=== PATIENT | female | born 1935 | race Caucasian/White ===

== ENCOUNTER 2016-11-29 06:25 | Inpatient (IN) | payer MEDICARE, OTHER ==
[~2016-11-29] VITALS: Ht 162.6 cm; Wt 123.7 kg
[2016-11-29] VITALS (19 sets, daily range): BP systolic 118–153; BP diastolic 64–93; PULSE 64–101; RESP 20–22; TEMP 98.6–99.1; O2SAT 90–99
[~2016-11-29 06:25] MED LIST: ACET325S8 PO; ALDA25TA PO; APIX5TAB PO; ARIC5TAB PO; BISA10SU3 RECTAL; CLON.1 PO; DONE10TA14 PO; DONE10TA7 PO; FLOR250C PO; GABA300C5 PO; INSU100V2 SC; LEVA500T PO; LEVEMIR SQ; LISI5 PO; LITH300 OR; LITH300C2 PO; METO-309 PO; MIRA33504 PO; NOVORP2 SQ; PRED5TAB PO; QUET1TAB11 PO; QUET1TAB8 PO; SENN8.6C PO; SERO100T PO; SIMV20TA PO; SPIRCAP INH; SYNT112T PO; TEMA15CA PO; TEMA7.5C PO; TORS10TA2 PO; TRAM50TA PO; VITA500030 CHEW
[2016-11-29] MEDS ORDERED: LATA0.002 EACH EYE (06:40)
[2016-11-29] MEDS ORDERED: FUROSEMIDE 40 MG/4 ML VIAL IV PUSH ONE (06:45)
[2016-11-29 06:52] LABS: BLOOD GAS CARBOXYHEMOGLOBIN 2.7 % (0-4); BLOOD GAS HCO3 30 mmol/L (22-26); BLOOD GAS O2 HGB SATURATION 94 % (90-100); BLOOD GAS OXYGEN CONTENT 15.4 Vol % (12.0-20.0); BLOOD GAS PCO2 60 mmHg (38-42); BLOOD GAS PO2 115 mmHG (61-120); BLOOD GAS TOTAL HGB 11.5 G/DL (12.0-16.0); CRITICAL VALUE YES; DRAW SITE LT RADIAL; FIO2 100 %; LITER FLOW 15 L/M; NUMBER OF ARTERIAL PUNCTURES 1; STAT YES; TEMP CORR TO 98.6
[2016-11-29] MEDS: RESP: ALBUTEROL 2.5 MG/IPRATROPIUM 0.5 MG NEB (SCH) INH ×2 (06:57→06:58)
--- NOTE | 2016-11-29 06:59 | PD ---
HPI Chief Complaint: Respiratory Distress Time Seen by Provider: 06:30 Travel History International Travel<30 days: No Contact w/Intl Traveler<30days: No Traveled to known affect area: No History of Present Illness HPI 81-year-old female was brought in from local [facility] for shortness of breath. Patient was found lethargic and shortness of breath this morning. O2 saturation was 58% at local [facility]. EMS was called. Patient was given O2 via nonrebreathing mask and transported to ED for evaluation. Patient has history of hypertension, diabetes, coronary artery disease, hypothyroidism, dyslipidemia, chronic kidney disease, dementia with psychosis, bipolar disorder. PFSH Past Medical History Bipolar Disorder: Yes Anxiety: Yes Depression: Yes Heart Rhythm Problems: Yes Cardiovascular Problems: Yes (PER MEDICAL RECORD-CAD) High Cholesterol: Yes Congestive Heart Failure: Yes Cerebrovascular Accident: Yes (CVA PER MEDICAL RECORD) Coronary Artery Disease: Yes Dementia: Yes Diabetes: Yes Patient Takes Glucophage: No Diminished Hearing: No Endocrine: Yes (PER MEDICAL RECORD) Genitourinary: Yes (PER MEDICAL RECORD- HAS UTI PER MEDICAL RECORD) Hypertension: Yes Implanted Vascular Access Dvce: No Insomnia: Yes Neurologic: Yes (BRAIN TUMOR PER MEDICAL RECORD, ) Psychiatric: Yes (BIPOLAR) Respiratory: Yes (PER MEDICAL RECORD-HX OF RECENT URI) Renal Failure: Yes Thyroid Disease: Yes Triglycerides - High: Yes Menopausal: Yes Past Surgical History Cardiac Surgery: Yes Neurologic Surgery: Yes (SURGERY FOR BRAIN TUMOR DEBULKING PER MEDICAL RECORD) Pacemaker: Yes Other Surgery: Yes Social History Alcohol Use: No Tobacco Use: Yes Substance Use: No (PER MEDICAL RECORD) Allergies-Medications (Allergen,Severity, Reaction): Coded Allergies: No Known Allergies (Verified , 11/29/16) Reported Meds & Prescriptions Reported Meds & Active Scripts Active Reported Latanoprost Opth Drops (Latanoprost) 0.005% Drops 1 Drop EACH EYE HS Refrigerate until opened. Temazepam 7.5 Mg Cap 7.5 Mg PO HS PRN Quetiapine (Quetiapine Fumarate) 400 Mg Tab 400 Mg PO HS Miralax Powder (Polyethylene Glycol 3350 Powder) 17 Gm Powd 17 Gm PO DAILY Mix and dissolve one measuring cap-ful (17 grams) in water or juice. Donepezil 10 Mg Tab 10 Mg PO HS Bisacodyl Supp (Bisacodyl) 10 Mg Supp 10 Mg RECTAL DAILY PRN Simvastatin 20 Mg Tab 20 Mg PO DAILY Gabapentin 300 Mg Cap 300 Mg PO TID Tramadol (Tramadol HCl) 50 Mg Tab 50 Mg PO Q8H PRN Florastor (Saccharomyces Boulardii) 250 Mg Cap 250 Mg PO BID Senna (Sennosides) 8.6 Mg Cap 8.6 Mg PO HS Quetiapine (Quetiapine Fumarate) 100 Mg Tab 100 Mg PO BID Wagner Carbonate 300 Mg Cap 300 Mg PO BID Eliquis (Apixaban) 5 Mg Tab 5 Mg PO BID Vitamin D3 (Cholecalciferol) 5,000 Unit Chew 5,000 Units CHEW DAILY Torsemide 10 Mg Tab 10 Mg PO DAILY Spiriva Handihaler (Tiotropium Inh) 18 Mcg Cap 18 Mcg INH DAILY 1 capsule = 18 mcg Prednisone 5 Mg Tab 5 Mg PO DAILY Synthroid (Levothyroxine Sodium) 112 Mcg Tab 112 Mcg PO DAILY Levemir Inj (Insulin Detemir) 1,000 unit/ 10 ML Vial 5 Units SQ HS Do not mix with any other Insulin. Review of Systems ROS Limitations: Altered Mental Status General / Constitutional: No: Fever Eyes: No: Visual changes HENT: No: Headaches Cardiovascular: No: Chest Pain or Discomfort Respiratory: No: Shortness of Breath Gastrointestinal: No: Abdominal Pain Genitourinary: No: Dysuria Musculoskeletal: No: Pain Skin: No Rash Neurologic: No: Weakness Psychiatric: No: Depression Endocrine: No: Polydipsia Hematologic/Lymphatic: No: Easy Bruising Physical Exam Narrative GENERAL: Well-nourished, well-developed patient. SKIN: Focused skin assessment warm/dry. HEAD: Normocephalic. EYES: No scleral icterus. No injection or drainage. NECK: Supple, trachea midline. No JVD or lymphadenopathy. CARDIOVASCULAR: Regular rate and rhythm without murmurs, gallops, or rubs. RESPIRATORY: Breath sounds equal bilaterally. No accessory muscle use. Patient has diffuse rhonchi and mild expiratory wheezes bilaterally. GASTROINTESTINAL: Abdomen soft, non-tender, nondistended. MUSCULOSKELETAL: No cyanosis, or edema. BACK: Nontender without obvious deformity. No CVA tenderness. Neurologic exam: Patient is lethargic and answered to name. Patient moves all extremity weakly however no focal neurological deficit. Data Data Last Documented VS Vital Signs Date Time Temp Pulse Resp B/P Pulse Ox O2 Delivery O2 Flow Rate FiO2 11/29/16 06:33 98 Non-Rebreather 15 11/29/16 06:28 99.1 79 22 149/93 Orders Electrocardiogram (11/29/16 06:30) Complete Blood Count With Diff (11/29/16 06:30) Comprehensive Metabolic Panel (11/29/16 06:30) Creatine Kinase (Cpk) (11/29/16 06:30) Troponin I (11/29/16 06:30) B-Type Natriuretic Peptide (11/29/16 06:30) Prothrombin Time / Inr (Pt) (11/29/16 06:30) Act Partial Throm Time (Ptt) (11/29/16 06:30) Arterial Blood Gas (Abg) (11/29/16 06:30) Blood Culture (11/29/16 06:30) Urinalysis - C+S If Indicated (11/29/16 06:30) Thyroid Stimulating Hormone (11/29/16 06:30) Influenzae A/B Antigen (11/29/16 06:30) Chest, Single Ap (11/29/16 06:30) Iv Access Insert/Monitor (11/29/16 06:30) Ecg Monitoring (11/29/16 06:30) Oximetry (11/29/16 06:30) Urinary Catheter Insert/Apply (11/29/16 06:30) Furosemide Inj (Lasix Inj) (11/29/16 06:45) Albuterol-Ipratropium Neb (Duoneb Neb) (11/29/16 06:45) Lactic Acid (11/29/16 06:35) Lactic Acid (11/29/16 06:49) MDM Medical Decision Making Medical Screen Exam Complete: Yes Emergency Medical Condition: Yes Differential Diagnosis Differential diagnosis including CHF, pneumonia, left airway disease, PE, pneumothorax, sepsis. Narrative Course 81-year-old female with respiratory distress, lethargic came from [facility]. Examination consistent with pulmonary congestion. Lasix 60 mg IV. Albuterol with Atrovent unit dose treatment 2. Brandon Arauz MD Nov 29, 2016 06:59
[2016-11-29] MEDS ORDERED: FUROSEMIDE 20 MG/2 ML VIAL IV PUSH ONE (07:00)
[2016-11-29 07:01] LABS: AUTOMATED NEUTROPHIL # 16.2 TH/MM3 (1.8-7.7); BASOPHIL % 0.2 % (0.0-2.0); EOSINOPHIL # 0.2 TH/MM3 (0-0.4); EOSINOPHIL % 0.8 % (0.0-4.0); HEMO FLAGS DIFF FINAL; LYMPH % 8.8 % (9.0-44.0); LYMPHOCYTE # 1.7 TH/MM3 (1.0-4.8); MEAN CELL VOLUME 92.9 FL (80.0-100.0); MEAN CORPUSCULAR HEMOGLOBIN 28.6 PG (27.0-34.0); MEAN CORPUSCULAR HGB CONC 30.8 % (32.0-36.0); MONO % 4.1 % (0.0-8.0); NEUT % 86.1 % (16.0-70.0); PLATELET COUNT 192 TH/MM3 (150-450); RED BLOOD COUNT 3.98 MIL/MM3 (4.00-5.30); RED CELL DISTRIBUTION WIDTH 16.3 % (11.6-17.2); WHITE BLOOD COUNT 18.8 TH/MM3 (4.0-11.0)
[2016-11-29 07:08] LABS: BACTERIA, URINE RARE /hpf; BLOOD, URINE NEG (NEG); COMMENT (UR) CATH-CULTURE IND; CULTURE IF INDICATED CATH CULTURE IND; GLUCOSE,URINE NEG (NEG); KETONE, URINE NEG (NEG); NITRITE,URINE NEG (NEG); PH, URINE 6.5 (5.0-8.5); SQUAMOUS EPITHELIAL CELL URINE 1 /hpf (0-5); URINE COLOR LIGHT-YELLOW (YELLW/STRAW)
[2016-11-29] MEDS ORDERED: CEFEPIME INJ 2,000 MG in SODIUM CHLORIDE 0.9% INJ 100 ML IV STA (07:13)
[2016-11-29] MEDS ORDERED: AZITHROMYCIN INJ 500 MG in SODIUM CHLOR 0.9% 250 ML INJ 250 ML IV STA (07:13)
[2016-11-29 07:14] LABS: PROTHROMBIN TIME - PATIENT 10.6 SEC (9.8-11.6)
[2016-11-29 07:28] LABS: ALKALINE PHOSPHATASE 100 U/L (45-117); ALT (GPT) 23 U/L (10-53); ANION GAP 4 MEQ/L (5-15); AST (GOT) 20 U/L (15-37); BICARBONATE 31.2 MEQ/L (21.0-32.0); BLOOD UREA NITROGEN 29 MG/DL (7-18); CHLORIDE 103 MEQ/L (98-107); GLOMERULAR FILTRATION RATE 29 ML/MIN (>89); SODIUM (NA) 138 MEQ/L (136-145); TOTAL BILIRUBIN ADULT 0.4 MG/DL (0.2-1.0)
[2016-11-29 07:30] LABS: CREATINE KINASE 41 U/L (26-192); POTASSIUM 4.8 MEQ/L (3.5-5.1)
--- NOTE | 2016-11-29 07:39 | PD ---
Physical Exam Narrative GENERAL: Well-nourished, well-developed patient. SKIN: Warm and dry. HEAD: Normocephalic and atraumatic. EYES: No injection or drainage. ENT: No nasal drainage noted. NECK: Supple, trachea midline. CARDIOVASCULAR: Regular rate and rhythm RESPIRATORY:coarse bilaterally. No accessory muscle use. NEUROLOGICAL: Awake. Moves all extremities, garbled speech and notes that does not feel well Data Data Last Documented VS Vital Signs Date Time Temp Pulse Resp B/P Pulse Ox O2 Delivery O2 Flow Rate FiO2 11/29/16 08:45 77 22 153/70 95 BiPAP 11/29/16 07:45 40 11/29/16 07:19 6.00 11/29/16 06:28 99.1 Orders Electrocardiogram (11/29/16 06:30) Complete Blood Count With Diff (11/29/16 06:30) Comprehensive Metabolic Panel (11/29/16 06:30) Creatine Kinase (Cpk) (11/29/16 06:30) Troponin I (11/29/16 06:30) B-Type Natriuretic Peptide (11/29/16 06:30) Prothrombin Time / Inr (Pt) (11/29/16 06:30) Act Partial Throm Time (Ptt) (11/29/16 06:30) Arterial Blood Gas (Abg) (11/29/16 06:30) Blood Culture (11/29/16 06:30) Urinalysis - C+S If Indicated (11/29/16 06:30) Thyroid Stimulating Hormone (11/29/16 06:30) Influenzae A/B Antigen (11/29/16 06:30) Chest, Single Ap (11/29/16 06:30) Iv Access Insert/Monitor (11/29/16 06:30) Ecg Monitoring (11/29/16 06:30) Oximetry (11/29/16 06:30) Urinary Catheter Insert/Apply (11/29/16 06:30) Furosemide Inj (Lasix Inj) (11/29/16 06:45) Albuterol-Ipratropium Neb (Duoneb Neb) (11/29/16 06:45) Lactic Acid (11/29/16 06:35) Lactic Acid (11/29/16 06:49) Furosemide Inj (Lasix Inj) (11/29/16 07:00) Urine Culture (11/29/16 06:53) Cefepime Inj (Maxipime Inj) (11/29/16 07:13) Azithromycin Inj (Zithromax Inj) (11/29/16 07:13) Resp Bipap / Cpap Non Invas Vt (11/29/16 ) Sodium Chlorid 0.9% 500 Ml Inj (Ns 500 M (11/29/16 08:30) Code Status (11/29/16 09:13) Admit Order (Ed Use Only) (11/29/16 09:16) Admit To Inpatient (11/29/16 ) Vital Signs (Adult) Q4H (11/29/16 09:15) Activity Oob Ad Phyllis (11/29/16 09:15) Bedside Glucose MAURA.AC&HS (11/29/16 09:15) Integration Assistant / Telemetry .CONTINUOUS (11/29/16 09:15) Intake + Output MAURA.QSHIFT (11/29/16 09:15) Notify Dr: Other (11/29/16 09:15) Diet Npo (11/29/16 Breakfast) Sodium Chlor 0.9% 1000 Ml Inj (Ns 1000 M (11/29/16 09:15) Sodium Chloride 0.9% Flush (Ns Flush) (11/29/16 09:15) Sodium Chloride 0.9% Flush (Ns Flush) (11/29/16 21:00) Acetaminophen (Tylenol) (11/29/16 09:15) Ondansetron Inj (Zofran Inj) (11/29/16 09:15) Bisacodyl Supp (Dulcolax Supp) (11/29/16 09:15) Docusate Sodium (Colace) (11/29/16 09:15) Basic Metabolic Panel (Bmp) (11/30/16 06:00) Complete Blood Count With Diff (11/30/16 06:00) Prothrombin Time / Inr (Pt) (11/30/16 06:00) Resp Oxygen Jay C Titrat 1-4 L (11/29/16 ) Heparin Inj (Heparin Inj) (11/29/16 09:15) Naloxone Inj (Narcan Inj) (11/29/16 09:15) Inpatient Certification (11/29/16 ) Labs Laboratory Tests Test 11/29/16 11/29/16 06:45 06:53 White Blood Count 18.8 TH/MM3 Red Blood Count 3.98 MIL/MM3 Hemoglobin 11.4 GM/DL Hematocrit 37.0 % Mean Corpuscular Volume 92.9 FL Mean Corpuscular Hemoglobin 28.6 PG Mean Corpuscular Hemoglobin 30.8 % Concent Red Cell Distribution Width 16.3 % Platelet Count 192 TH/MM3 Mean Platelet Volume 10.4 FL Neutrophils (%) (Auto) 86.1 % Lymphocytes (%) (Auto) 8.8 % Monocytes (%) (Auto) 4.1 % Eosinophils (%) (Auto) 0.8 % Basophils (%) (Auto) 0.2 % Neutrophils # (Auto) 16.2 TH/MM3 Lymphocytes # (Auto) 1.7 TH/MM3 Monocytes # (Auto) 0.8 TH/MM3 Eosinophils # (Auto) 0.2 TH/MM3 Basophils # (Auto) 0.0 TH/MM3 CBC Comment DIFF FINAL Differential Comment Prothrombin Time 10.6 SEC Prothromb Time International 1.0 RATIO Ratio Activated Partial 29.0 SEC Thromboplast Time Blood Gas Puncture Site LT RADIAL Blood Gas Patient Temperature 98.6 Blood Gas HCO3 30 mmol/L Blood Gas Base Excess 4.0 mmol/L Blood Gas Oxygen Saturation 94 % Arterial Blood pH 7.32 Arterial Blood Partial 60 mmHg Pressure CO2 Arterial Blood Partial 115 mmHG Pressure O2 Arterial Blood Oxygen Content 15.4 Vol % Arterial Blood 2.7 % Carboxyhemoglobin Arterial Blood Methemoglobin 1.0 % Blood Gas Hemoglobin 11.5 G/DL Oxygen Delivery Device Non-Rebreathing Mask Blood Gas Liter Flow 15 L/M Blood Gas Inspired Oxygen 100 % Sodium Level 138 MEQ/L Potassium Level 4.8 MEQ/L Chloride Level 103 MEQ/L Carbon Dioxide Level 31.2 MEQ/L Anion Gap 4 MEQ/L Blood Urea Nitrogen 29 MG/DL Creatinine 1.72 MG/DL Estimat Glomerular Filtration 29 ML/MIN Rate Random Glucose 228 MG/DL Lactic Acid Level 2.1 mmol/L Calcium Level 9.2 MG/DL Total Bilirubin 0.4 MG/DL Aspartate Amino Transf 20 U/L (AST/SGOT) Alanine Aminotransferase 23 U/L (ALT/SGPT) Alkaline Phosphatase 100 U/L Total Creatine Kinase 41 U/L Troponin I LESS THAN 0.02 NG/ML B-Type Natriuretic Peptide 54 PG/ML Total Protein 7.0 GM/DL Albumin 3.1 GM/DL Thyroid Stimulating Hormone 2.870 uIU/ML 3rd Gen Urine Color LIGHT-YELLOW Urine Turbidity CLEAR Urine pH 6.5 Urine Specific [place] 1.011 Urine Protein TRACE mg/dL Urine Glucose (UA) NEG mg/dL Urine Ketones NEG mg/dL Urine Occult Blood NEG Urine Nitrite NEG Urine Bilirubin NEG Urine Urobilinogen LESS THAN 2.0 MG/DL Urine Leukocyte Esterase TRACE Urine RBC LESS THAN 1 /hpf Urine WBC 3 /hpf Urine Squamous Epithelial 1 /hpf Cells Urine Bacteria RARE /hpf Microscopic Urinalysis Comment CATH-CULTURE IND MDM Supervised Visit with MIGUELINA: No Interpretation(s) CBC & BMP Diagram 11/29/16 06:45 cxr with signs of pneumonia, right more then left in patchy pattern bnp normal Narrative Course Signed over to me to follow workup and admit for further care, antibiotics added to regimen and attempted to stop second Lasix dose after review of chest x -ray but this was already given, patient will be given small amount of IV fluids and will try trial of BiPAP given patient is DNR with mild respiratory acidosis family arrived and updated, agree to bipap and continue dnr status, will admit for further patient stable on bipap on recheck will monitor Critical Care Narrative Aggregate critical care time was 35 minutes. Time to perform other separately billable procedures was not included in the critical care time. My time did not include minutes spent treating any other patients simultaneously or on activities that did not directly contribute to the patient's treatment. The services I provided to this patient were to treat and/or prevent clinically significant deterioration that could result in: respiratory failure I provided critical care services requiring my management, as noted below: Chart data review, documentation time, medication orders and management, vital sign assessments/reviewing monitor data, ordering and reviewing lab tests, ordering and interpreting/reviewing x-rays and diagnostic studies, care of the patient and discussion of the patient with the admitting physicians. Sepsis Criteria SIRS Criteria (2 or more): RR > 20 or PaCO2 < 32, WBC > 95398, < 4000 or > 10 % bands Sepsis Criteria (SIRS+source): Infect source susp/known Severe Sepsis (+one): Lactate >2 Criteria Outcome: Meets severe sepsis criteria Physician Communication Physician Communication dr bartlett agrees to admit Diagnosis Primary Impression: Pneumonia Qualified Code: J18.9 - Pneumonia of both lungs due to infectious organism, unspecified part of lung Additional Impression: Sepsis Qualified Code: A41.9 - Sepsis, due to unspecified organism Admitting Information Admitting Physician Requests: Admit Mali Ortiz MD Nov 29, 2016 07:38
--- NOTE | 2016-11-29 08:11 | RADRPT ---
EXAM DATE/TIME: 11/29/2016 07:07 [place] COMPARISON: CHEST SINGLE AP, October 13, 2012, 7:46. INDICATIONS : Shortness of breath. MEDICAL HISTORY : Chronic obstructive pulmonary disease. SURGICAL HISTORY : Pacemaker. ENCOUNTER: Initial ACUITY: 1 day PAIN SCORE: Non-responsive. LOCATION: Bilateral chest FINDINGS: The heart is mildly prominent but stable. A left subclavian dual lead pacemaker has its tips in the right atrium and right ventricle. Patchiness is noted within the right lung base and to a lesser ext ent left lung base consistent with probable pneumonia. Clinical correlation is recommended. CONCLUSION: 1. Bibasilar patchiness (right worse than left) consistent with probable pneumonia. Clinical correl ation is recommended. 2. Stable cardiomegaly. Adiel Wilson MD on November 29, 2016 at 7:29 Board Certified Radiologist. This report was verified electronically.
[2016-11-29] MEDS ORDERED: SODIUM CHLORID 0.9% 500 ML INJ 500 ML IV ONE (08:30)
[2016-11-29] MEDS ORDERED: SODIUM CHLORIDE 0.9% FLUSH 10 ML FLUSH IV FLUSH PRN (09:15)
[2016-11-29] MEDS ORDERED: ACETAMINOPHEN 325 MG TAB PO PRN (09:15)
[2016-11-29] MEDS ORDERED: NALOXONE HCL 0.4 MG/ML AMP IV PRN (09:15)
[2016-11-29] MEDS ORDERED: BISACODYL 10 MG SUPP RECTAL PRN (09:15)
[2016-11-29] MEDS: SODIUM CHLOR 0.9% 1000 ML INJ 1,000 ML IV SCH ×2 (09:15→22:26)
[2016-11-29] MEDS ORDERED: HEPARIN SODIUM - SQ 10,000 UNITS/ML VIAL SQ SCH (09:15)
[2016-11-29] MEDS: DOCUSATE SODIUM 100 MG CAP PO SCH ×2 (09:15→21:22)
[2016-11-29] MEDS ORDERED: ONDANSETRON HCL 4 MG/2 ML VIAL IVP PRN (09:15)
--- NOTE | 2016-11-29 09:19 | HHI.HP ---
[facility] Service [place] [facility] Primary Care Physician No Primary Care Physician Admission Diagnosis pneumonia Diagnoses: Chief Complaint: Shortness of breath Travel History International Travel<30 Days: No Contact w/Intl Traveler <30 Da: No Traveled to Known Affected Are: No History of Present Illness This is a pleasant 81 y/o Female who was brought in from local snf for Shortness of breath, was found lethargic and Shortness of breath in AM, Oxygen saturation was 58% at local residential, Improving after antibiotics given in ER, also Bronchodilators, she has Hypertension, DM II, CAD, Hypothyroidism, Hyperlipidemia, CKD, Dementia with Psychosis, Bipolar Disorder. Seen in Emergency room the patient is discussed with Respiratory therapy specialist Shabnam the patient is on BiPAP consulted retina subspecialist, also piercing specialist, I called her contact Miss Sisi Nunez but no answer to the Phones [phone] and [phone] left messages on both phones. not able to take history other than the one in chart. Review of Systems Respiratory: COMPLAINS OF: Shortness of breath Past Family Social History Past Medical History Bipolar Disorder Anxiety disorder Depression Arrhythmia CAD Hyperlipidemia CHF CVA Dementia DM II Hypertension Brain Tumor Hypothyroidism Past Surgical History Brain Tumor Debulking surgery pacemaker placement. Reported Medications Reported Meds & Active Scripts Active Reported Latanoprost Opth Drops (Latanoprost) 0.005% Drops 1 Drop EACH EYE HS Refrigerate until opened. Temazepam 7.5 Mg Cap 7.5 Mg PO HS PRN Quetiapine (Quetiapine Fumarate) 400 Mg Tab 400 Mg PO HS Miralax Powder (Polyethylene Glycol 3350 Powder) 17 Gm Powd 17 Gm PO DAILY Mix and dissolve one measuring cap-ful (17 grams) in water or juice. Donepezil 10 Mg Tab 10 Mg PO HS Bisacodyl Supp (Bisacodyl) 10 Mg Supp 10 Mg RECTAL DAILY PRN Simvastatin 20 Mg Tab 20 Mg PO DAILY Gabapentin 300 Mg Cap 300 Mg PO TID Tramadol (Tramadol HCl) 50 Mg Tab 50 Mg PO Q8H PRN Florastor (Saccharomyces Boulardii) 250 Mg Cap 250 Mg PO BID Senna (Sennosides) 8.6 Mg Cap 8.6 Mg PO HS Quetiapine (Quetiapine Fumarate) 100 Mg Tab 100 Mg PO BID Champ Carbonate 300 Mg Cap 300 Mg PO BID Eliquis (Apixaban) 5 Mg Tab 5 Mg PO BID Vitamin D3 (Cholecalciferol) 5,000 Unit Chew 5,000 Units CHEW DAILY Torsemide 10 Mg Tab 10 Mg PO DAILY Spiriva Handihaler (Tiotropium Inh) 18 Mcg Cap 18 Mcg INH DAILY 1 capsule = 18 mcg Prednisone 5 Mg Tab 5 Mg PO DAILY Synthroid (Levothyroxine Sodium) 112 Mcg Tab 112 Mcg PO DAILY Levemir Inj (Insulin Detemir) 1,000 unit/ 10 ML Vial 5 Units SQ HS Do not mix with any other Insulin. Allergies: Coded Allergies: No Known Allergies (Verified , 11/29/16) Active Ordered Medications Current Medications Medications (Trade) Dose Ordered Sig/Julieta Route Start Time Stop Time Status Last Admin (NS 1000 ml Inj) 1,000 ml @ 100 mls/hr Q10H IV 11/29/16 09:15 (NS Flush) 2 ml UNSCH PRN IV FLUSH 11/29/16 09:15 (NS Flush) 2 ml BID IV FLUSH 11/29/16 21:00 (Tylenol) 650 mg Q4H PRN PO 11/29/16 09:15 (Zofran Inj) 4 mg Q6H PRN IVP 11/29/16 09:15 (Dulcolax Supp) 10 mg DAILY PRN RECTAL 11/29/16 09:15 (Colace) 100 mg Q12H PO 11/29/16 09:15 (Heparin Inj) 5,000 units Q12H SQ 11/29/16 09:15 Naloxone HCl 0.4 mg 0.4 mg UNSCH PRN IV 11/29/16 09:15 Ceftriaxone Sodium 1000 mg/ Sodium Chloride 100 ml @ 200 mls/hr Q24H IV 11/30/16 09:00 (Zithromax Inj/ NS 250 ml Inj) 250 ml @ 250 mls/hr Q24H IV 11/30/16 09:00 (Mucinex Er) 600 mg BID PO 11/29/16 21:00 Family History Not possible to obtain information Social History Tobacco dependence Physical Exam Vital Signs Vital Signs Date Time Temp Pulse Resp B/P Pulse Ox O2 Delivery O2 Flow Rate FiO2 11/29/16 08:45 77 22 153/70 95 BiPAP 11/29/16 07:45 96 40 11/29/16 07:19 94 Venturi Mask 6.00 50 11/29/16 06:33 98 Non-Rebreather 15 11/29/16 06:28 99.1 79 22 149/93 96 Physical Exam GENERAL: Morbid obese patient, on BiPAP. SKIN: warm/dry. HEAD: Normocephalic. EYES: No scleral icterus. No injection or drainage. NECK: Supple, trachea midline. No JVD or lymphadenopathy. CARDIOVASCULAR: Regular rate and rhythm without murmurs, gallops, or rubs. RESPIRATORY: Decreased breath sounds bilateral, Expiratory Wheezing and soft diffuse Rhonchi. GASTROINTESTINAL: Abdomen soft, non-tender, nondistended. MUSCULOSKELETAL: No cyanosis, or edema. BACK: Nontender without obvious deformity. No CVA tenderness. Neurologic exam: Patient is lethargic and answered to name. Patient moves all extremity weakly however no focal neurological deficit. Laboratory Laboratory Tests Test 11/29/16 11/29/16 06:45 06:53 White Blood Count 18.8 Red Blood Count 3.98 Hemoglobin 11.4 Hematocrit 37.0 Mean Corpuscular Volume 92.9 Mean Corpuscular Hemoglobin 28.6 Mean Corpuscular Hemoglobin 30.8 Concent Red Cell Distribution Width 16.3 Platelet Count 192 Mean Platelet Volume 10.4 Neutrophils (%) (Auto) 86.1 Lymphocytes (%) (Auto) 8.8 Monocytes (%) (Auto) 4.1 Eosinophils (%) (Auto) 0.8 Basophils (%) (Auto) 0.2 Neutrophils # (Auto) 16.2 Lymphocytes # (Auto) 1.7 Monocytes # (Auto) 0.8 Eosinophils # (Auto) 0.2 Basophils # (Auto) 0.0 CBC Comment DIFF FINAL Differential Comment Prothrombin Time 10.6 Prothromb Time International 1.0 Ratio Activated Partial 29.0 Thromboplast Time Blood Gas Puncture Site LT RADIAL Blood Gas Patient Temperature 98.6 Blood Gas HCO3 30 Blood Gas Base Excess 4.0 Blood Gas Oxygen Saturation 94 Arterial Blood pH 7.32 Arterial Blood Partial 60 Pressure CO2 Arterial Blood Partial 115 Pressure O2 Arterial Blood Oxygen Content 15.4 Arterial Blood 2.7 Carboxyhemoglobin Arterial Blood Methemoglobin 1.0 Blood Gas Hemoglobin 11.5 Oxygen Delivery Device Non-Rebreathing Mask Blood Gas Liter Flow 15 Blood Gas Inspired Oxygen 100 Sodium Level 138 Potassium Level 4.8 Chloride Level 103 Carbon Dioxide Level 31.2 Anion Gap 4 Blood Urea Nitrogen 29 Creatinine 1.72 Estimat Glomerular Filtration 29 Rate Random Glucose 228 Lactic Acid Level 2.1 Calcium Level 9.2 Total Bilirubin 0.4 Aspartate Amino Transf 20 (AST/SGOT) Alanine Aminotransferase 23 (ALT/SGPT) Alkaline Phosphatase 100 Total Creatine Kinase 41 Troponin I LESS THAN 0.02 B-Type Natriuretic Peptide 54 Total Protein 7.0 Albumin 3.1 Thyroid Stimulating Hormone 2.870 3rd Gen Urine Color LIGHT-YELLOW Urine Turbidity CLEAR Urine pH 6.5 Urine Specific [place] 1.011 Urine Protein TRACE Urine Glucose (UA) NEG Urine Ketones NEG Urine Occult Blood NEG Urine Nitrite NEG Urine Bilirubin NEG Urine Urobilinogen LESS THAN 2.0 Urine Leukocyte Esterase TRACE Urine RBC LESS THAN 1 Urine WBC 3 Urine Squamous Epithelial 1 Cells Urine Bacteria RARE Microscopic Urinalysis Comment CATH-CULTURE IND Date/Time Procedure Status Source Growth 11/29/16 06:53 Urine Culture Received Urine Catheterized Urine Pending 11/29/16 06:45 Aerobic Blood Culture Received Blood Peripheral Pending 11/29/16 06:45 Anaerobic Blood Culture Received Blood Peripheral Pending Result Diagram: 11/29/16 0645 11/29/16 0645 Imaging CXR performed. Assessment and Plan Assessment and Plan 1. Respiratory Failure Hypercapnic Probable secondary to COPD exacerbation and Pneumonia continue Antibiotics, Bronchodilators, mucolytic and incentive spirometry, Oxygen to keep Oxygen saturation over 92%. Discussed with Respiratory Therapy specialist 2. Bipolar disorder/Anxiety disorder/Depression to continue Home medicines 3. CAD asked for new Echocardiogram and BNP 54 continue IV fluids 4. Atrial fibrillation on Eliquis 5. Hyperlipidemia to continue Home medicines 6. Dementia to continue Home medicines 7. DM II continue sliding scale. 8. Hypertension controlled continue home medicines 9. Hypothyroidism to continue Hormonal replacement IV. Consult retina subspecialist Consult piercing specialist. DVT prophylaxis with Eliquis Discussed with ER physician Doctor Mali Ortiz Code Status DNR Discussed Condition With Patient and ER physician, called her contact Miss Sisi Nunez did not answer awaiting for her call back. Physician Certification 2 Midnight Certification Type: Admission for Inpatient Services Order for Inpatient Services The services are ordered in accordance with Medicare regulations or non- Medicare payer requirements, as applicable. In the case of services not specified as inpatient-only, they are appropriately provided as inpatient services in accordance with the 2-midnight benchmark. Estimated LOS (days): 3 days is the estimated time the patient will need to remain in the hospital, assuming treatment plan goals are met and no additional complications. Post-Hospital Plan: Not yet determined Alban Shaw MD Nov 29, 2016 09:19 Physician Certification Order for Inpatient Services The services are ordered in accordance with Medicare regulations or non- Medicare payer requirements, as applicable. In the case of services not specified as inpatient-only, they are appropriately provided as inpatient services in accordance with the 2-midnight benchmark. days is the estimated time the patient will need to remain in the hospital, assuming treatment plan goals are met and no additional complications. Alban Shaw MD Nov 29, 2016 09:19
--- NOTE | 2016-11-29 10:36 | PD.CONS ---
Consult Service Palliative Care . Consult Requested By Dr. Zhu . Primary Care Physician No Primary Care Physician . Reason for Consultation a. To assist with evaluation and management of symptoms including: dyspnea, weakness, anxiety b. To assist medical decision maker(s) with: better understanding of current medical conditions; weighing benefits/burdens of medical treatment options; making medical treatment decisions. . HPI History of Present Illness Ms. Brown is a 81-year-old female who presented to [facility] ED on 2016 for evaluation of shortness of breath. She is a long-term resident at a local correction. Apparently the patient was found lethargic and short of breath that morning with an oxygen saturation of 58%. EMS was called, and on their arrival the patient was placed on a non-rebreather and transported to the hospital for evaluation. She has a past medical history that includes bipolar disorder, anxiety/depression, arrhythmia, hypothyroidism, CAD, hyperlipidemia, CHF, h/o CVA, dementia with psychosis, DM II, HTN, and a h/o brain tumor with debulking surgery. Additional diagnostic findings include: * Vital signs: Pulse 79, respirations 22, BP 149/93, oxygen saturation 98% on 15L via nonrebreather, axillary temperature 99.1 * Sodium: 138, potassium 4.8, chloride 103, carbon dioxide 31.2, glucose 228, calcium 9.2 * BUN: 29, creatinine 1.72, GFR 29 * Lactic acid: 2.1 * Total bilirubin: 0.4, AST 20, ALT 23, alkaline phosphatase 100 * Total creatine kinase: 41 * Troponin: <0.02 * BNP: 54 * Total protein: 7.0, albumin 3.1 * WBC: 18.8, hemoglobin 11.4, hematocrit 37.0, platelets 192, neutrophils 86.1% * PT: 10.6, INR 1.0, APTT 29.0 * Urinalysis with trace leukocyte esterase and rare bacteria - urine culture indicated and pending. * Blood culture pending * Chest x-ray revealed bibasilar patchiness (right >left) consistent with probable pneumonia; stable cardiomegaly. The chest x-ray was consistent with probable pneumonia and IV antibiotics were initiated. Patient was given a small amount of IV fluids and placed on BiPAP, given she is a DNR with mild respiratory acidosis. The patient's family arrived and were updated on the patient's clinical condition. They were agreeable to BiPAP and continuation of DNR status. Patient was admitted for further evaluation and medical management. Patient has a lengthy psychiatric history requiring multiple hospitalizations. Although the patient has a history of chronic renal insufficiency her family states that she has been on lithium for 50+ years, and it has been one of the only medications that has provided symptom management. They request that the patient be maintained on her current lithium dose. Palliative Care was consulted to assist with symptom management and to discuss with the family the benefits and burdens of her current illnesses and the options regarding future care. . Function/Cognitive Trajectory Patient has a lengthy psychiatric history requiring multiple hospitalizations. She lived with her sister (Fatimah Jimenez) or many years until her functional decline required placement at a [facility] approximately 5 years ago. Family describes a slow decline over the past several years. However in the past year the trajectory of the patient's decline has become more acute. The patient's nephew states in the past year the patient has become primarily wheelchair-bound, although she remains able to bare weight and pivot to transfer. She uses supplemental oxygen on an as needed basis; the family feels she would benefit from continuous supplemental oxygen at this time. The patient is dependent for all ADLs. She is still able to feed herself , and her appetite remains good. She is on a regular diet with thin consistency liquids. . Review of Systems ROS Limitations: Clinical Condition (Patient is unable to participate in ROS secondary to her clinical condition. Information obtained through report and review of notes.), Altered Mental Status (History of dementia), Speech Impaired (Patient has had a speech impairment since having nonmalignant tumor debulking in the .), Other (Patient is on BiPAP) Constitutional: COMPLAINS OF: Weight gain (Per family report), Generalized weakness (Primarily wheelchair-bound; able to bare weight to pivot and transfer) , DENIES: Weight loss, Change in appetite Ears, nose, mouth, throat: DENIES: Epistaxis Respiratory: COMPLAINS OF: Cough (Nonproductive cough), Shortness of breath, DENIES: Hemoptysis Cardiovascular: COMPLAINS OF: Dyspnea on Exertion, Lower Extremity Edema Gastrointestinal: DENIES: Constipation, Diarrhea, Nausea, Vomiting, Difficulty Swallowing, Anorexia Neurologic: COMPLAINS OF: Speech Problems (Secondary to brain tumor debulking surgery in the ) Psychiatric: COMPLAINS OF: Anxiety, Mood changes (Bipolar affective disorder), Depression Past Family Social History Coded Allergies: No Known Allergies (Verified , 11/29/16) Past Medical History Bipolar Disorder Anxiety disorder Depression Arrhythmia Hypothyroidism CAD Hyperlipidemia CHF CVA Dementia DM II Hypertension Brain Tumor Hypothyroidism . Past Surgical History Brain tumor debulking surgery Pacemaker placement. . Reported Medications Latanoprost Opth Drops (Latanoprost) 0.005% Drops 1 Drop EACH EYE HS Refrigerate until opened. Temazepam 7.5 Mg Cap 7.5 Mg PO HS PRN Quetiapine (Quetiapine Fumarate) 400 Mg Tab 400 Mg PO HS Miralax Powder (Polyethylene Glycol 3350 Powder) 17 Gm Powd 17 Gm PO DAILY Mix and dissolve one measuring cap-ful (17 grams) in water or juice. Donepezil 10 Mg Tab 10 Mg PO HS Bisacodyl Supp (Bisacodyl) 10 Mg Supp 10 Mg RECTAL DAILY PRN Simvastatin 20 Mg Tab 20 Mg PO DAILY Gabapentin 300 Mg Cap 300 Mg PO TID Tramadol (Tramadol HCl) 50 Mg Tab 50 Mg PO Q8H PRN Florastor (Saccharomyces Boulardii) 250 Mg Cap 250 Mg PO BID Senna (Sennosides) 8.6 Mg Cap 8.6 Mg PO HS Quetiapine (Quetiapine Fumarate) 100 Mg Tab 100 Mg PO BID Welch Carbonate 300 Mg Cap 300 Mg PO BID Eliquis (Apixaban) 5 Mg Tab 5 Mg PO BID Vitamin D3 (Cholecalciferol) 5,000 Unit Chew 5,000 Units CHEW DAILY Torsemide 10 Mg Tab 10 Mg PO DAILY Spiriva Handihaler (Tiotropium Inh) 18 Mcg Cap 18 Mcg INH DAILY 1 capsule = 18 mcg Prednisone 5 Mg Tab 5 Mg PO DAILY Synthroid (Levothyroxine Sodium) 112 Mcg Tab 112 Mcg PO DAILY Levemir Inj (Insulin Detemir) 1,000 unit/ 10 ML Vial 5 Units SQ HS Do not mix with any other Insulin. . Current Medications Medications (Trade) Dose Ordered Sig/Julieta Route Start Time Stop Time Status Last Admin (NS 1000 ml Inj) 1,000 ml @ 100 mls/hr Q10H IV 11/29/16 09:15 (NS Flush) 2 ml UNSCH PRN IV FLUSH 11/29/16 09:15 (NS Flush) 2 ml BID IV FLUSH 11/29/16 21:00 (Tylenol) 650 mg Q4H PRN PO 11/29/16 09:15 (Zofran Inj) 4 mg Q6H PRN IVP 11/29/16 09:15 (Dulcolax Supp) 10 mg DAILY PRN RECTAL 11/29/16 09:15 (Colace) 100 mg Q12H PO 11/29/16 09:15 (Heparin Inj) 5,000 units Q12H SQ 11/29/16 09:15 Naloxone HCl 0.4 mg 0.4 mg UNSCH PRN IV 11/29/16 09:15 Ceftriaxone Sodium 1000 mg/ Sodium Chloride 100 ml @ 200 mls/hr Q24H IV 11/30/16 09:00 (Zithromax Inj/ NS 250 ml Inj) 250 ml @ 250 mls/hr Q24H IV 11/30/16 09:00 (Mucinex Er) 600 mg BID PO 11/29/16 21:00 . Family History Both parents are . Mother from complications related to diabetes, heart disease and CVA. Patient's father in 1973 after having a myocardial infarction. Patient has 4 sisters whose medical histories include heart disease , COPD, lupus and osteoporosis/osteoarthritis. . Substance Use Tobacco: Current smoker, 1PPD for most of her life. Alcohol: Patient does not consume alcohol Prescription med abuse: No known history of prescription med abuse. Illicits: No known history of illicits. . Psychosocial History Patient was born in [place], [place] but has lived in [place] for many years. The patient has 4 sisters; Sisi, Tiesha, Lalitha and Tessa. Three of her sisters live locally and one lives in [place], [place]. Patient completed her high school education and [place]. 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 Patient's sister states she was for a short period of time. She never had children. In reviewing previous notes, in the past the patient was an extremely social person who enjoyed spending time with her friends and dancing. She has a lengthy psychiatric history with multiple hospitalizations. She lived with her sister (Sisi) or many years until her functional decline required placement at a [facility] facility approximately 5 years ago. Patient's family is extremely supportive, and someone tries to visit her at [facility] daily. . Spiritual/Cultural Factors Holiness armen . Health Care Surrogate: Copy in medical record Durable Power of Blocker And Polisher Gold Wheel: Copy in medical record (Patient's sister (Fatimah Jimenez) is the DURABLE POWER OF BREAST SPLITTER - it does not include health care. However, it is unclear if the patient signed these documents.) Date completed: 05/28/2013 . Health Care Surrogate(s): Designation of health care surrogate form was completed on 05/28/2013 designating the patient's nephew , Austin Jimenez, as the health care surrogate medical decision maker. However, it does not appear that the document was signed by the patient. . Documented care wishes: No documented care wishes in place. . Today's verbally stated goals: Patient is unable to verbalize medical treatment goals, dyspneic and on BiPAP. . Family/friends goals: Patient's sister (Fatimah Jimenez) and nephew (Austin Jimenez) met with palliative care earlier today 11/29/2016. They request that the patient's medical conditions be treated aggressively. If the patient's respiratory distress worsens, they state they would proceed with intubation and mechanical ventilation in an attempt to get the patient through this pulmonary crisis. They state they would not want the patient to remain on mechanical ventilator for a prolonged period of time. . Ethical and Legal Issues Patient's sister (Fatimah Jimenez) and nephew (Austin Jimenez) met with palliative care earlier today 11/29/2016. They request that the patient's medical conditions be treated aggressively. If the patient's respiratory distress worsens, they state they would proceed with intubation and mechanical ventilation in an attempt to get the patient through this pulmonary crisis. They state they would not want the patient to remain on mechanical ventilator for a prolonged period of time. Copies of a community DNR, designation of health care surrogate form and DURABLE POWER OF BREAST SPLITTER are in the patient's chart and were faxed to HIM to be scanned into the patient's EMR. However, it appears that none of these documentations were signed by the patient and are therefore not legally binding. Per [place] statutes, in the absence of written advanced directives healthcare proxy decision making would fall to the majority of the patient's for adult siblings (she is not and never had children) . I spoke with the nurse practitioner at [facility], and it appears that one sister (Fatimah Jimenez) has been making healthcare decisions and financial decisions for the patient for an extended period of time. [place] statutes were reviewed with [facility] staff, the patient's sister (Fatimah Jimenez) and nephew (Austin Cardenas) and I have asked for contact information for the 3 remaining sisters (Lalitha Salas, Tiesha and Tessa). Physical Exam Vital Signs Date Time Temp Pulse Resp B/P Pulse Ox O2 Delivery O2 Flow Rate FiO2 11/29/16 08:45 77 22 153/70 95 BiPAP 11/29/16 07:45 96 40 11/29/16 07:19 94 Venturi Mask 6.00 50 11/29/16 06:33 98 Non-Rebreather 15 11/29/16 06:28 99.1 79 22 149/93 96 . Date/Time Procedure Status Source Growth 11/29/16 06:40 Aerobic Blood Culture Received Blood Peripheral Pending 11/29/16 06:40 Anaerobic Blood Culture Received Blood Peripheral Pending 11/29/16 06:45 Aerobic Blood Culture Received Blood Peripheral Pending 11/29/16 06:45 Anaerobic Blood Culture Received Blood Peripheral Pending 11/29/16 06:53 Urine Culture Received Urine Catheterized Urine Pending . Exam CONSTITUTIONAL/GENERAL: This is an adequately nourished patient on BiPAP TUBES/LINES/DRAINS: SKIN: No jaundice, rashes, or lesions. Ecchymoses on upper extremities. No wounds seen anteriorly. Skin temperature appropriate. Not diaphoretic. HEAD: Atraumatic. Normocephalic. EYES: Pupils equal and round and reactive. No scleral icterus. No injection or drainage. Fundi not examined. ENT: Hearing grossly normal. Nose without bleeding or purulent drainage. NECK: Trachea midline. CARDIOVASCULAR: Regular rate and rhythm without murmurs, gallops, or rubs. RESPIRATORY/CHEST: Coarse breath sounds, expiratory wheeze, rhonchi. GASTROINTESTINAL: Abdomen soft, non-tender, nondistended. GENITOURINARY: Without palpable bladder distension. Ken catheter in place. MUSCULOSKELETAL: Extremities without clubbing, cyanosis. Bilateral lower extremity edema LYMPHATICS: No palpable cervical or supraclavicular adenopathy. NEUROLOGICAL: Arouses to verbal stimuli. Attempts to respond to questions- although difficult to understand/communicate secondary to BiPAP mask. PSYCHIATRIC: Patient appears anxious . Diagnostic Tests Laboratory Laboratory Tests Test 11/29/16 11/29/16 06:45 06:53 White Blood Count 18.8 TH/MM3 (4.0-11.0) Red Blood Count 3.98 MIL/MM3 (4.00-5.30) Hemoglobin 11.4 GM/DL (11.6-15.3) Hematocrit 37.0 % (35.0-46.0) Mean Corpuscular Volume 92.9 FL (80.0-100.0) Mean Corpuscular Hemoglobin 28.6 PG (27.0-34.0) Mean Corpuscular Hemoglobin 30.8 % Concent (32.0-36.0) Red Cell Distribution Width 16.3 % (11.6-17.2) Platelet Count 192 TH/MM3 (150-450) Mean Platelet Volume 10.4 FL (7.0-11.0) Neutrophils (%) (Auto) 86.1 % (16.0-70.0) Lymphocytes (%) (Auto) 8.8 % (9.0-44.0) Monocytes (%) (Auto) 4.1 % (0.0-8.0) Eosinophils (%) (Auto) 0.8 % (0.0-4.0) Basophils (%) (Auto) 0.2 % (0.0-2.0) Neutrophils # (Auto) 16.2 TH/MM3 (1.8-7.7) Lymphocytes # (Auto) 1.7 TH/MM3 (1.0-4.8) Monocytes # (Auto) 0.8 TH/MM3 (0-0.9) Eosinophils # (Auto) 0.2 TH/MM3 (0-0.4) Basophils # (Auto) 0.0 TH/MM3 (0-0.2) CBC Comment DIFF FINAL Differential Comment Prothrombin Time 10.6 SEC (9.8-11.6) Prothromb Time International 1.0 RATIO Ratio Activated Partial 29.0 SEC Thromboplast Time (24.3-30.1) Blood Gas Puncture Site LT RADIAL Blood Gas Patient Temperature 98.6 Blood Gas HCO3 30 mmol/L (22-26) Blood Gas Base Excess 4.0 mmol/L (-2-2) Blood Gas Oxygen Saturation 94 % (90-100) Arterial Blood pH 7.32 (7.380-7.420) Arterial Blood Partial 60 mmHg (38-42) Pressure CO2 Arterial Blood Partial 115 mmHG Pressure O2 (61-120) Arterial Blood Oxygen Content 15.4 Vol % (12.0-20.0) Arterial Blood 2.7 % (0-4) Carboxyhemoglobin Arterial Blood Methemoglobin 1.0 % (0-2) Blood Gas Hemoglobin 11.5 G/DL (12.0-16.0) Oxygen Delivery Device Non-Rebreathing Mask Blood Gas Liter Flow 15 L/M Blood Gas Inspired Oxygen 100 % Sodium Level 138 MEQ/L (136-145) Potassium Level 4.8 MEQ/L (3.5-5.1) Chloride Level 103 MEQ/L (98-107) Carbon Dioxide Level 31.2 MEQ/L (21.0-32.0) Anion Gap 4 MEQ/L (5-15) Blood Urea Nitrogen 29 MG/DL (7-18) Creatinine 1.72 MG/DL (0.50-1.00) Estimat Glomerular Filtration 29 ML/MIN (>89) Rate Random Glucose 228 MG/DL (74-106) Lactic Acid Level 2.1 mmol/L (0.4-2.0) Calcium Level 9.2 MG/DL (8.5-10.1) Total Bilirubin 0.4 MG/DL (0.2-1.0) Aspartate Amino Transf 20 U/L (15-37) (AST/SGOT) Alanine Aminotransferase 23 U/L (10-53) (ALT/SGPT) Alkaline Phosphatase 100 U/L (45-117) Total Creatine Kinase 41 U/L (26-192) Troponin I LESS THAN 0.02 NG/ML (0.02-0.05) B-Type Natriuretic Peptide 54 PG/ML (0-100) Total Protein 7.0 GM/DL (6.4-8.2) Albumin 3.1 GM/DL (3.4-5.0) Thyroid Stimulating Hormone 2.870 uIU/ML 3rd Gen (0.358-3.740) Urine Color LIGHT-YELLOW (YELLW/STRAW) Urine Turbidity CLEAR (CLEAR) Urine pH 6.5 (5.0-8.5) Urine Specific [place] 1.011 (1.002-1.035) Urine Protein TRACE mg/dL (NEG-TRACE) Urine Glucose (UA) NEG mg/dL (NEG) Urine Ketones NEG mg/dL (NEG) Urine Occult Blood NEG (NEG) Urine Nitrite NEG (NEG) Urine Bilirubin NEG (NEG) Urine Urobilinogen LESS THAN 2.0 MG/DL (LESS THAN 2.0) Urine Leukocyte Esterase TRACE (NEG) Urine RBC LESS THAN 1 /hpf (0-3) Urine WBC 3 /hpf (0-5) Urine Squamous Epithelial 1 /hpf (0-5) Cells Urine Bacteria RARE /hpf (NONE) Microscopic Urinalysis Comment CATH-CULTURE IND . Result Diagram: 11/29/1645 11/29/16644 Microbiology Microbiology Date/Time Procedure Status Source Growth 11/29/16 06:40 Aerobic Blood Culture Received Blood Peripheral Pending 11/29/16 06:40 Anaerobic Blood Culture Received Blood Peripheral Pending 11/29/16 06:45 Aerobic Blood Culture Received Blood Peripheral Pending 11/29/16 06:45 Anaerobic Blood Culture Received Blood Peripheral Pending 11/29/16 06:53 Urine Culture Received Urine Catheterized Urine Pending . Patient/Family Conference Present at Family Conference: Met with patient's sister (Fatimah Jimenez) and nephew (Austin Jimenez) at patient's bedside and in family conference room. . Family Conference Location: Bedside, Consult Room Issues Discussed: * Palliative care role, purpose, approach * Additional medical, psychosocial, and spiritual history * Patients general health, functional status, and cognitive changes in the months leading up to the current hospitalization * Patient/family understanding of the current medical problems * Patient/family understanding of prognosis * Patients goals of care as best understood from advance directives and/or conversations and/or values * Current medical treatment options and benefits/burdens of those options * Likely scenarios comparing ongoing aggressive care with a transition to comfort measures only * Questions answered to the best of my ability * Palliative care contact information provided . Assessment and Plan Disease Oriented Problem List: (1) hypertension (2) dementia (3) Pneumonia (4) Coronary artery disease Comment: Echocardiogram pending (5) Anxiety disorder (6) Bipolar affective disorder (7) Dementia (8) Depression (9) Diabetes Comment: Continue sliding scale (10) CHF (congestive heart failure) Comment: BNP: 54 (11) Hyperlipidemia (12) Hypothyroidism (13) Respiratory failure Comment: Hypercapnic respiratory failure, likely secondary to COPD exacerbation and pneumonia. Plan to continue IV antibiotics, bronchodilators, mucolytic's and incentive spirometer. Maintain oxygen saturations >92%. (14) Hypertension (15) Chronic renal insufficiency (16) Atrial fibrillation Comment: On Eliquis Symptom Scale: (1) Weakness Comment: Patient lived with her sister for many years. She was placed in a long -term care facility approximately 5 years ago when her sister was no longer able to able to care for her. The patient's trajectory of decline has become more acute over the past 12 months per the family's report. Patient is now primarily bedbound. She is able to bare weight and pivot to transfer. She is dependent for all ADLs. . (2) Dyspnea Comment: Patient presented to [facility] ED via EMS for evaluation of dyspnea. When EMS arrived at the facility the patient's oxygen saturation was 58 %, placed on nonrebreather. Now on BiPAP. Dx : Hypercapnic respiratory failure , likely secondary to COPD exacerbation and pneumonia. Plan to continue IV antibiotics, bronchodilators, mucolytic's and incentive spirometer. Maintain oxygen saturations >92%. (3) Anxiety Comment: Patient has a chronic history of anxiety disorder which is likely exacerbated secondary to the patient's dyspnea, hospitalization, BiPAP mask. . Pertinent Non-Medical Issues Psychosocial: Patient was born in [place], [place] but has lived in [place] for many years. The patient has 4 sisters; Sisi, Tiesha, Lalitha and Tessa. Three of her sisters live locally and one lives in [place], [place]. Patient completed her high school education and [place]. 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 Patient's sister states she was for a short period of time. She never had children. In reviewing previous notes, in the past the patient was an extremely social person who enjoyed spending time with her friends and dancing. She has a lengthy psychiatric history with multiple hospitalizations. She lived with her sister (Sisi) or many years until her functional decline required placement at a general repairer care facility approximately 5 years ago. Patient's family is extremely supportive, and someone tries to visit her at [facility] daily. Spiritual: Holiness armen Legal: Patient's sister (Fatimah Jimenez) and nephew (Austin Jimenez) met with palliative care earlier today 11/29/2016. They request that the patient's medical conditions be treated aggressively. If the patient's respiratory distress worsens, they state they would proceed with intubation and mechanical ventilation in an attempt to get the patient through this pulmonary crisis. They state they would not want the patient to remain on mechanical ventilator for a prolonged period of time. Copies of a community DNR, designation of health care surrogate form and DURABLE POWER OF BREAST SPLITTER are in the patient's chart and were faxed to HIM to be scanned into the patient's EMR. However, it appears that none of these documentations were signed by the patient and are therefore not legally binding. Per [place] statutes, in the absence of written advanced directives healthcare proxy decision making would fall to the majority of the patient's for adult siblings (she is not and never had children) . I spoke with the nurse practitioner at [facility], and it appears that one sister (Fatimah Jimenez) has been making healthcare decisions and financial decisions for the patient for an extended period of time. [place] statutes were reviewed with [facility] staff, the patient's sister (Fatimah Jimenez) and nephew (Austin Cardenas) and I have asked for contact information for the 3 remaining sisters (Lalitha Salas, Tiesha and Tessa). Ethical issues impacting care: No known ethical issues impacting care at this time. . Important Contacts Austin Jimenez, HCS: [phone] or [phone] Sisi Jimenez, sister: [phone] or [phone] . Prognosis Patient is a 81-year-old female with an extensive medical history that includes that includes bipolar disorder, anxiety/depression, arrhythmia, hypothyroidism, CAD, hyperlipidemia, CHF, h/o CVA, dementia with psychosis, DM II, HTN, and a h/ o brain tumor with debulking surgery. The patient is a long-term resident at [facility]. She is currently hospitalized with hypercapnic respiratory failure likely secondary to COPD exacerbation and pneumonia. Of note, at home ( [facility]) the patient uses supplemental oxygen on an as-needed basis; she continues to smoke 1 PPD. Patient has had a slow decline over the past several years with the trajectory of her decline becoming more acute in the past 12 months. She is now primarily bedbound and dependent for all ADLs. Given the patient's advanced age, multiple comorbid conditions and overall poor performance status-her overall prognosis is likely poor . Code Status: No Code Plan * ALTERNATE CODE-intubation only * Patient's sister (Fatimah Jimenez) and nephew (Austin Jimenez) met with palliative care earlier today 11/29/2016. They request that the patient's medical conditions be treated aggressively. If the patient's respiratory distress worsens, they state they would want to proceed with intubation and mechanical ventilation in an attempt to get the patient through this pulmonary crisis. They state they would not want the patient to remain on mechanical ventilation for a prolonged period of time. Copies of a community DNR, designation of health care surrogate form and DURABLE POWER OF BREAST SPLITTER are in the patient's chart and were faxed to HIM to be scanned into the patient's EMR. However, it appears that none of these documents were signed by the patient, and therefore are not legally binding. Per [place] statutes, in the absence of written advanced directives healthcare proxy decision making falls to the majority of the patient's four sisters (she is not and does not have children). I spoke with the TODDLER LEAD TEACHER at [facility], and it appears that one sister (Fatimah Jimenez) has been making healthcare and financial decisions for the patient for an extended period of time. [place] statutes were reviewed with [facility] staff, the patient's sister (Fatimah Jimenez) and nephew ( Austin Cardenas). I have requested contact information for the patient's 3 remaining sisters (Lalitha Salas, Tiesha and Tessa) and also provided Palliative Care contact information as well. We will need to speak to all 4 sisters to determine who wants to participate in health care proxy decision- making and who wants to opt out of medical decision-making. * Goals: Goals are aggressive at this time. * Symptom managementdyspnea: Patient presented to [facility] ED via EMS for evaluation of dyspnea. When EMS arrived at the facility the patient's oxygen saturation was 58%, placed on nonrebreather. Now on BiPAP. Dx : Hypercapnic respiratory failure, likely secondary to COPD exacerbation and pneumonia. Plan to continue IV antibiotics, bronchodilators, mucolytic's and incentive spirometer. Maintain oxygen saturations >92%. * Symptom managementweakness: Patient lived with her sister for many years. She was placed in a long-term care facility approximately 5 years ago when her sister was no longer able to able to care for her. The patient's trajectory of decline has become more acute over the past 12 months per the family's report. Patient is now primarily bedbound. She is able to bare weight and pivot to transfer. She is dependent for all ADLs. * Symptom managementanxiety: Patient's chronic anxiety is likely exacerbated secondary to the patient's dyspnea, hospitalization, BiPAP mask. She has a lengthy psychiatric history requiring multiple hospitalizations. Although the patient has a history of chronic renal insufficiency her family states that she has been on lithium for 50+ years, and it has been one of the only medications that has provided symptom management. They request that the patient be maintained on her current lithium dose. * Palliative care contact information was provided to the patient's family and [facility]. * Palliative care will continue to follow this patient throughout her hospitalization to establish trust, assist with symptom management and clarification of medical treatment goals. . Thank you for the opportunity to participate in the care of Ms. Brown. . Attestation To help prompt me to consider important information that might be impacting today's encounter and assessment, information from prior notes written by myself or my colleagues may have been "brought forward" into today's note. My signature on this note, however, is an attestation that I personally performed the exam, history, and/or decision-making noted today, and, unless otherwise indicated, the interactions with patient, family, and staff as well as the review of records all occurred today. I also attest that the listed assessment and stated plan reflect my best clinical judgment today based on the combination of historical information, prior notes, and today's exam/ interactions. When time spent is documented, it refers only to time spent today by the signer, or if indicated, combined time spent today by collaborating physician/nurse practitioner. . Breonna Manrique Nov 29, 2016 10:36
[2016-11-29] MEDS: RESP: ALBUTEROL 2.5 MG/IPRATROPIUM 0.5 MG NEB (SCH) NEB ×3 (11:34→22:11)
[2016-11-29] MEDS ORDERED: methylPREDNISolone SOD SUCC 40 MG/1 ML VIAL IV PUSH SCH (14:30)
[2016-11-29] MEDS ORDERED: DEXTROSE 50% IN WATER 50 ML VIAL(D50) IV PUSH PRN (15:00)
[2016-11-29] MEDS ORDERED: GLUCAGON 1 MG/ML VIAL OTHER PRN (15:00)
[2016-11-29] MEDS: INSULIN NovoLIN REGULAR SUPPLEMENTAL SCALE SQ SCH ×2 (16:00→21:24)
[2016-11-29] MEDS: GABAPENTIN 300 MG CAP PO SCH (17:47)
--- NOTE | 2016-11-29 19:07 | EKG ---
Date Performed: 11/29/2016 Time Performed: 06:32:16 PTAGE: 81 years EKG: Normal Sinus rhythm Marked baseline artifact Right bundle branch block Compared to prior tracing no significant change, but makes this substandard ABNORMAL ECG PREVIOUS TRACING : 07/24/2016 12.33 DOCTOR: Ash Michelle Interpretating Date/Time 11/29/2016 19:05:34
[2016-11-29] MEDS ORDERED: QUEtiapine FUMARATE 100 MG TAB PO SCH (21:00)
[2016-11-29] MEDS: APIXABAN 5 MG TABLET PO SCH (21:19)
[2016-11-29] MEDS: QUEtiapine FUMARATE 200 MG TAB PO SCH (21:19)
[2016-11-29] MEDS: LATANOPROST 0.005% OPHT SOLN 2.5 ML BTL EACH EYE SCH (21:20)
[2016-11-29] MEDS: SODIUM CHLORIDE 0.9% FLUSH 10 ML FLUSH IV FLUSH SCH (21:20)
[2016-11-29] MEDS: DONEPEZIL HCL 5 MG TAB PO SCH (21:20)
[2016-11-29] MEDS: LITHIUM CARBONATE 300 MG CAP PO SCH (21:20)
[2016-11-29] MEDS: methylPREDNISolone SOD SUCC 40 MG/1 ML VIAL IV PUSH SCH (21:21)
[2016-11-29] MEDS: guaiFENesin E.R. 600 MG TAB PO SCH (22:26)
[2016-11-29] MEDS: CEFEPIME INJ 2,000 MG in SODIUM CHLORIDE 0.9% INJ 100 ML IV SCH (22:26)
[2016-11-30] VITALS (32 sets, daily range): BP systolic 120–152; BP diastolic 67–83; PULSE 68–92; RESP 18–24; TEMP 97.9–98.8; O2SAT 63–100
[2016-11-30] MEDS: RESP: ALBUTEROL 2.5 MG/IPRATROPIUM 0.5 MG NEB (SCH) NEB ×6 (01:51→21:08)
[2016-11-30 05:25] LABS: AUTOMATED NEUTROPHIL # 16.3 TH/MM3 (1.8-7.7); BASOPHIL % 0.1 % (0.0-2.0); HEMATOCRIT 34.6 % (35.0-46.0); HEMO FLAGS DIFF FINAL; LYMPHOCYTE # 0.3 TH/MM3 (1.0-4.8); MEAN CELL VOLUME 94.1 FL (80.0-100.0); MEAN CORPUSCULAR HEMOGLOBIN 28.8 PG (27.0-34.0); MEAN CORPUSCULAR HGB CONC 30.6 % (32.0-36.0); MONO % 0.6 % (0.0-8.0); NEUT % 97.3 % (16.0-70.0); PLATELET COUNT 190 TH/MM3 (150-450); RED BLOOD COUNT 3.68 MIL/MM3 (4.00-5.30); RED CELL DISTRIBUTION WIDTH 16.8 % (11.6-17.2); WHITE BLOOD COUNT 16.7 TH/MM3 (4.0-11.0)
[2016-11-30 05:36] LABS: PROTHROMBIN TIME - PATIENT 10.7 SEC (9.8-11.6)
[2016-11-30 06:01] LABS: BICARBONATE 27.8 MEQ/L (21.0-32.0); POTASSIUM 4.4 MEQ/L (3.5-5.1)
[2016-11-30] MEDS: INSULIN NovoLIN REGULAR SUPPLEMENTAL SCALE SQ SCH ×5 (06:32→20:38)
[2016-11-30] MEDS: LEVOTHYROXINE SODIUM 112 MCG TAB PO SCH (06:32)
[2016-11-30] MEDS: SODIUM CHLOR 0.9% 1000 ML INJ 1,000 ML IV SCH ×2 (06:33→12:40)
--- NOTE | 2016-11-30 08:05 | HHI.PR ---
Subjective Remarks This is a pleasant 81 y/o Female who was brought in from local [facility] for Shortness of breath, was found lethargic and Shortness of breath in AM, Oxygen saturation was 58% at local long term, Improving after antibiotics given in ER, also Bronchodilators, she has Hypertension, DM II, CAD, Hypothyroidism, Hyperlipidemia, CKD, Dementia with Psychosis, Bipolar Disorder. 11/30: Patient in her bedroom, in the presence of nurse Miss Garcia and her Daughter Miss Zarate she already seen by Remote Control Assembler Doctor Kvng Kingston, recommended to continue Zithromax and Cefepime, Venti mask at this time with Nasal Cannula Improving condition, discussed again about end of life. Objective Vital Signs Date Time Temp Pulse Resp B/P Pulse Ox O2 Delivery O2 Flow Rate FiO2 11/30/16 07:47 95 40 11/30/16 06:00 73 11/30/16 05:13 94 40 11/30/16 05:00 71 11/30/16 04:40 98.5 71 24 120/67 95 11/30/16 04:00 76 11/30/16 03:00 72 11/30/16 02:00 84 11/30/16 01:51 95 BiPAP 40 11/30/16 01:51 95 40 11/30/16 01:00 74 11/30/16 00:00 76 11/30/16 00:00 98.8 79 18 141/72 93 11/29/16 23:00 74 11/29/16 22:00 72 11/29/16 21:00 64 20 151/83 99 11/29/16 21:00 74 11/29/16 20:38 99.1 86 20 138/72 93 11/29/16 20:00 70 11/29/16 19:00 70 11/29/16 16:04 90 Venturi Mask 6.00 50 11/29/16 16:00 98.6 73 22 134/64 92 11/29/16 12:47 93 40 11/29/16 12:45 98.8 77 22 126/78 93 11/29/16 12:05 101 20 143/74 93 BiPAP 11/29/16 11:34 92 40 11/29/16 11:11 76 22 118/70 96 BiPAP 11/29/16 08:45 77 22 153/70 95 BiPAP I/O 11/29/16 11/29/16 11/29/16 11/30/16 11/30/16 11/30/16 07:00 15:00 23:00 07:00 15:00 23:00 Intake Total 1348 ml Output Total 1800 ml 2450 ml Balance -1800 ml -1102 ml Intake Oral 680 ml IV Total 668 ml Output Urine Total 1800 ml 2450 ml Emesis 0 ml # Bowel Movements 0 Result Diagram: 11/30/16 0355 11/30/16 0355 Imaging CXR performed. Procedures BiPAP Other Results Laboratory Tests Test 11/29/16 11/29/16 11/29/16 11/30/16 06:45 06:53 21:04 03:55 Activated Partial 29.0 SEC Thromboplast Time Blood Gas Puncture Site LT RADIAL Blood Gas Patient Temperature 98.6 Blood Gas HCO3 30 mmol/L Blood Gas Base Excess 4.0 mmol/L Blood Gas Oxygen Saturation 94 % Arterial Blood pH 7.32 Arterial Blood Partial 60 mmHg Pressure CO2 Arterial Blood Partial 115 mmHG Pressure O2 Arterial Blood Oxygen Content 15.4 Vol % Arterial Blood 2.7 % Carboxyhemoglobin Arterial Blood Methemoglobin 1.0 % Blood Gas Hemoglobin 11.5 G/DL Oxygen Delivery Device Non-Rebreathing Mask Blood Gas Liter Flow 15 L/M Blood Gas Inspired Oxygen 100 % Lactic Acid Level 2.1 mmol/L Total Bilirubin 0.4 MG/DL Aspartate Amino Transf 20 U/L (AST/SGOT) Alanine Aminotransferase 23 U/L (ALT/SGPT) Alkaline Phosphatase 100 U/L Total Creatine Kinase 41 U/L Troponin I LESS THAN 0.02 NG/ML B-Type Natriuretic Peptide 54 PG/ML Total Protein 7.0 GM/DL Albumin 3.1 GM/DL Thyroid Stimulating Hormone 2.870 uIU/ML 3rd Gen Urine Color LIGHT-YELLOW Urine Turbidity CLEAR Urine pH 6.5 Urine Specific [place] 1.011 Urine Protein TRACE mg/dL Urine Glucose (UA) NEG mg/dL Urine Ketones NEG mg/dL Urine Occult Blood NEG Urine Nitrite NEG Urine Bilirubin NEG Urine Urobilinogen LESS THAN 2.0 MG/DL Urine Leukocyte Esterase TRACE Urine RBC LESS THAN 1 /hpf Urine WBC 3 /hpf Urine Squamous Epithelial 1 /hpf Cells Urine Bacteria RARE /hpf Microscopic Urinalysis Comment CATH-CULTURE IND [place] Level 1.0 MEQ/L White Blood Count 16.7 TH/MM3 Red Blood Count 3.68 MIL/MM3 Hemoglobin 10.6 GM/DL Hematocrit 34.6 % Mean Corpuscular Volume 94.1 FL Mean Corpuscular Hemoglobin 28.8 PG Mean Corpuscular Hemoglobin 30.6 % Concent Red Cell Distribution Width 16.8 % Platelet Count 190 TH/MM3 Mean Platelet Volume 10.7 FL Neutrophils (%) (Auto) 97.3 % Lymphocytes (%) (Auto) 2.0 % Monocytes (%) (Auto) 0.6 % Eosinophils (%) (Auto) 0.0 % Basophils (%) (Auto) 0.1 % Neutrophils # (Auto) 16.3 TH/MM3 Lymphocytes # (Auto) 0.3 TH/MM3 Monocytes # (Auto) 0.1 TH/MM3 Eosinophils # (Auto) 0.0 TH/MM3 Basophils # (Auto) 0.0 TH/MM3 CBC Comment DIFF FINAL Differential Comment Prothrombin Time 10.7 SEC Prothromb Time International 1.0 RATIO Ratio Sodium Level 139 MEQ/L Potassium Level 4.4 MEQ/L Chloride Level 102 MEQ/L Carbon Dioxide Level 27.8 MEQ/L Anion Gap 9 MEQ/L Blood Urea Nitrogen 29 MG/DL Creatinine 1.84 MG/DL Estimat Glomerular Filtration 26 ML/MIN Rate Random Glucose 387 MG/DL Calcium Level 8.8 MG/DL Objective Remarks GENERAL: Morbid obese patient, with Nasal Cannula. SKIN: warm/dry. HEAD: Normocephalic. EYES: No scleral icterus. No injection or drainage. NECK: Supple, trachea midline. No JVD or lymphadenopathy. CARDIOVASCULAR: Regular rate and rhythm without murmurs, gallops, or rubs. RESPIRATORY: Decreased breath sounds bilateral, Expiratory Wheezing and soft diffuse Rhonchi. GASTROINTESTINAL: Abdomen soft, non-tender, nondistended. MUSCULOSKELETAL: No cyanosis, or edema. BACK: Nontender without obvious deformity. No CVA tenderness. Neurologic exam: Patient is lethargic and answered to name. Patient moves all extremity weakly however no focal neurological deficit. Medications and IVs Current Medications Medications (Trade) Dose Ordered Sig/Julieta Route Start Time Stop Time Status Last Admin (NS 1000 ml Inj) 1,000 ml @ 100 mls/hr Q10H IV 11/29/16 09:15 11/30/16 06:33 (NS Flush) 2 ml UNSCH PRN IV FLUSH 11/29/16 09:15 (NS Flush) 2 ml BID IV FLUSH 11/29/16 21:00 11/29/16 21:20 (Tylenol) 650 mg Q4H PRN PO 11/29/16 09:15 (Zofran Inj) 4 mg Q6H PRN IVP 11/29/16 09:15 (Dulcolax Supp) 10 mg DAILY PRN RECTAL 11/29/16 09:15 (Colace) 100 mg Q12H PO 11/29/16 09:15 11/29/16 21:22 Naloxone HCl 0.4 mg 0.4 mg UNSCH PRN IV 11/29/16 09:15 (Zithromax Inj/ NS 250 ml Inj) 250 ml @ 250 mls/hr Q24H IV 11/30/16 09:00 (Mucinex Er) 600 mg BID PO 11/29/16 21:00 11/29/16 22:26 (Eliquis) 5 mg BID PO 11/29/16 21:00 11/29/16 21:19 (Aricept) 10 mg HS PO 11/29/16 21:00 11/29/16 21:20 (Neurontin) 300 mg TID PO 11/29/16 18:00 11/29/16 17:47 (Xalatan 0.005% Opth Soln) 1 drop HS EACH EYE 11/29/16 21:00 11/29/16 21:20 (Synthroid) 112 mcg DAILY@06 PO 11/30/16 06:00 11/30/16 06:32 ([place] Carbonate) 300 mg BID PO 11/29/16 21:00 11/29/16 21:20 (Demadex) 10 mg DAILY PO 11/30/16 09:00 (SEROquel) 400 mg HS PO 11/29/16 21:00 11/29/16 21:19 (Pravachol) 40 mg DAILY PO 11/30/16 09:00 (D50w (Vial) Inj) 25 ml UNSCH PRN IV PUSH 11/29/16 15:00 (Glucagon Inj) 1 mg UNSCH PRN OTHER 11/29/16 15:00 Methylprednisolone Sodium Succinate 40 mg 40 mg BID IV PUSH 11/29/16 21:00 11/29/16 21:21 (Maxipime Inj/NS Inj) 100 ml @ 200 mls/hr Q12H IV 11/29/16 20:00 11/29/16 22:26 A/P Assessment and Plan 1. Respiratory Failure Hypercapnic Probable secondary to COPD exacerbation and Pneumonia continue Antibiotics, Bronchodilators, mucolytic and incentive spirometry, Oxygen to keep Oxygen saturation over 92%. Discussed with Respiratory Therapy specialist, switched by Doctor Vashti to Cefepime continue Azithromycin. 2. Bipolar disorder/Anxiety disorder/Depression to continue Home medicines 3. CAD asked for new Echocardiogram and BNP 54 continue IV fluids 4. Atrial fibrillation on Eliquis 5. Hyperlipidemia to continue Home medicines 6. Dementia to continue Home medicines 7. DM II continue sliding scale. 8. Hypertension controlled continue home medicines 9. Hypothyroidism to continue Hormonal replacement IV. Consult spine specialist Consult water resource engineering specialist. DVT prophylaxis with Eliquis Code Status Alternative Code okay for Intubation. Discussed Condition With patient, her Daughter Miss Zarate and her nurse Miss Garcia Discharge Planning Expected in two days. Alban Shaw MD Nov 30, 2016 08:05
[2016-11-30] MEDS: guaiFENesin E.R. 600 MG TAB PO SCH ×2 (08:20→20:29)
[2016-11-30] MEDS: CEFEPIME INJ 2,000 MG in SODIUM CHLORIDE 0.9% INJ 100 ML IV SCH ×2 (08:20→20:35)
[2016-11-30] MEDS: GABAPENTIN 300 MG CAP PO SCH ×3 (08:20→18:17)
[2016-11-30] MEDS: methylPREDNISolone SOD SUCC 40 MG/1 ML VIAL IV PUSH SCH (08:20)
[2016-11-30] MEDS: APIXABAN 5 MG TABLET PO SCH ×2 (08:21→20:30)
[2016-11-30] MEDS: DOCUSATE SODIUM 100 MG CAP PO SCH ×2 (08:21→20:30)
[2016-11-30] MEDS: PRAVASTATIN SOD 40 MG TAB PO SCH (08:21)
[2016-11-30] MEDS: LITHIUM CARBONATE 300 MG CAP PO SCH ×2 (08:21→20:30)
[2016-11-30] MEDS: TORSEMIDE 5 MG TAB PO SCH (08:21)
[2016-11-30] MEDS: SODIUM CHLORIDE 0.9% FLUSH 10 ML FLUSH IV FLUSH SCH ×2 (08:22→20:31)
[2016-11-30] MEDS ORDERED: cefTRIAXone INJ 1,000 MG in SODIUM CHLORIDE 0.9% INJ 100 ML IV SCH (09:00)
[2016-11-30] MEDS: AZITHROMYCIN INJ 500 MG in SODIUM CHLOR 0.9% 250 ML INJ 250 ML IV SCH (09:00)
--- NOTE | 2016-11-30 11:02 | EC ---
Study Study Date:11/29/2016 STUDY CONCLUSIONS SUMMARY - Procedure narrative: Image quality was poor. The study was technically limited due to poor acoustic window availability. - Left ventricle: The cavity size was normal. Wall thickness was increased in a pattern of mild LVH. There was concentric hypertrophy. In limited views, the systolic function appears to be probably normal. If LV function is below 40, please consider prescribing an ACEI or ARB or document rationale for non-use. PROCEDURE DATA STUDY STATUS: Elective. Procedure: Transthoracic echocardiography. Image quality was poor. The study was technically limited due to poor acoustic window availability. Scanning was performed from the parasternal, apical, and subcostal acoustic windows. Study completion: The patient tolerated the procedure well. Transthoracic echocardiography. M-mode, complete 2D, complete spectral Doppler, and color Doppler. Height: Height: 63in. Weight: Weight: 263.5lb. Body mass index: BMI: 46.8kg/m^2. Body surface area: BSA: 2.18m^2. Patient status: Inpatient. CARDIAC ANATOMY LEFT VENTRICLE: The cavity size was normal. Wall thickness was increased in a pattern of mild LVH. There was concentric hypertrophy. In limited views, the systolic function appears to be probably normal. Images were inadequate for LV wall motion assessment. AORTIC VALVE: Poorly visualized. Doppler: There was no stenosis. No significant regurgitation. Valve area: 2.47cm^2 (Vmax). Indexed valve area: 1.13cm^2/m^2 (Vmax). MITRAL VALVE: Not well visualized. Doppler: There was no evidence for stenosis. No significant regurgitation. PULMONIC VALVE: Not visualized. TRICUSPID VALVE: Not well visualized. Doppler: There was no evidence for stenosis. Trace regurgitation. Patient weight: 263.5lb _Ejection fraction:_ 65-75% _Fractional shortening:_ 32% up to 5Kg 5-11.5Kg 11.6-22.9Kg 23-45Kg 45-57Kg Aortic Root 7-13 <17 13-22 17-27 17-27 LA diam 6-13 <23 24-38 33-47 37-40 RVID 10-17 7-15 7-15 7-18 8-17 LVIDd 12-22 <32 24-38 33-47 37-40 LVPW 2-4 3-6 5-7 6-8 7-8 IVS 2-4 3-6 5-7 6-8 7-8 BASIC MEASUREMENTS ADULT NORMAL Left ventricle LV internal dimension, ED, chordal *42.7 mm 43-52 level, PLAX LV internal dimension, ES, chordal 31 mm 23-38 level, PLAX Fractional shortening, chordal level, *27 % >29 PLAX LV posterior wall thickness, ED 10.9 mm IVS/LVPW ratio, ED 1.14 <1.3 Ventricular septum Septal thickness, ED 12.4 mm Aortic valve Leaflet separation 20 mm 15-26 BASIC MEASUREMENTS ADULT NORMAL Aortic valve Leaflet separation 20 mm 15-26 Aorta Root diameter, ED 27 mm 20-37 Left atrium Anterior-posterior dimension, ES 35 mm 19-40 Anterior-posterior dimension index, ES 1.61 cm/m^2 <2.2 LA/aortic root ratio 1.3 DOPPLER MEASUREMENTS ADULT NORMAL Aortic valve Peak velocity, S 117 cm/s Valve area, Vmax 2.47 cm^2 Valve area index, Vmax 1.13 cm^2/m^2 LEGEND: Mean values are shown as u=mean value. Asterisk (*) olsen values outside specified normal range. Prepared and signed by Nilay Valdez [id number]
[2016-11-30] MEDS ORDERED: RESP: ALBUTEROL 2.5 MG/IPRATROPIUM 0.5 MG NEB (SCH) NEB (12:00)
--- NOTE | 2016-11-30 13:12 | MB ---
cc: NAYAN BUCIO DATE OF CONSULTATION: 11/30/2016 REASON FOR CONSULTATION: Pulmonary consult, on Katelin Brown. HISTORY OF PRESENT ILLNESS: Miss Brown is a 81-year-old white female with chronic dementia and bipolar disorder who lives in a nursing facility locally. She was found this morning to be cyanotic and dyspneic was brought into the emergency room and has bilateral pneumonia. She has a heavy smoker, continues to smoke even up to the time of admission and has a history of COPD. The patient does not provide this history of taken from the notes and from her nephew who is here with her. The patient apparently gets along fairly well in the nursing facility does have the psychiatric history and some dementia but is functional. Unfortunately she does continue to smoke. MEDICATIONS: 1. From her list of medications from the retirement she is on prednisone daily at 5 mg, 2. Tiotropium 3. Spiriva 4. Chronic anticoagulation with Eliquis. Her chest x-ray on admission revealed bibasilar patchy infiltrates in both lungs and an enlarged heart. Initial blood cultures are pending. White blood cell count was elevated to 18.8, blood gases on presentation on a non-rebreather her pO2 was 115 with a pH 7.3, pCO2 of 60. She was placed on BiPap and sats have been above 90, BUN is 29 and creatinine of 1.8 and BNP was low at 54. PAST MEDICAL HISTORY 1. Bipolar disorder 2. Depression 3. Arrhythmia 4. Hypothyroidism 5. Coronary disease 6. A history of congestive heart failure 7. Prior stroke. 8. Mild chronic dementia. 9. Type 2 diabetes. 10. Hypertension. 11. Some type of brain tumor which was previously operated on. 12. She does have a pacemaker. MEDICATIONS Reviewed in the EMR. ALLERGIES None known. SOCIAL HISTORY As noted above. Continues to smoke unfortunately, no alcohol use. She lives in the nursing facility. Nephew and a sister are here at the bedside seemed very supportive. REVIEW OF SYSTEMS Review of systems other than what I have noted in the history of present illness is unobtainable. PHYSICAL EXAMINATION IN GENERAL: Obese white female, a little distress related to the BiPAP. She is pulling at the tubes and seems to indicate she would like it off. VITAL SIGNS: She is afebrile. Her pulse is 70, respirations are 18-22 and blood pressure is 120/60, sat is 95%. HEAD, EYES, EARS, NOSE, AND THROAT: sclerae anicteric. NECK: Neck veins are not distended. LUNGS: She has some diffuse congestion in her lungs minimal no wheezing. No basilar rales. HEART: Regular heart rhythm. Soft systolic murmur. No audible S3. ABDOMEN: The abdomen is obese but soft. EXTREMITIES: No significant ankle edema and no cyanosis of the nail beds. DISCUSSION Ms. Brown presents with a history of probable COPD given the smoking history as well as a patchy infiltrates in both lungs now consistent with pneumonia. She does have an elevated white count. PLAN: We will continue Zithromax and cefepime for broad-spectrum coverage, probably contracted this in a nursing facility. Continue her on nebulized aerosol treatments and steroids if she tolerates those. I will stop her BiPap put her on a Venti mask and see if she tolerates that better than the BiPap. She seems more stable at this time. Further diagnostic and/or therapeutic range will depend on her ongoing clinical course and response to therapy. R. MD GALILEA Gonzalez/anna /11:01 AM /12:35 PM
[2016-11-30] MEDS: LATANOPROST 0.005% OPHT SOLN 2.5 ML BTL EACH EYE SCH (20:30)
[2016-11-30] MEDS: DONEPEZIL HCL 5 MG TAB PO SCH (20:31)
[2016-11-30] MEDS: QUEtiapine FUMARATE 200 MG TAB PO SCH (20:31)
[2016-11-30] MEDS: INSULIN DETEMIR 100 UNITS/ML VIAL SQ SCH (20:31)
[2016-11-30] MEDS ORDERED: INSULIN NovoLIN REGULAR SUPPLEMENTAL SCALE SQ SCH (21:00)
[2016-12-01] VITALS (27 sets, daily range): BP systolic 138–185; BP diastolic 70–96; PULSE 62–78; RESP 20–22; TEMP 97.8–98.5; O2SAT 94–100
[2016-12-01] MEDS: LEVOTHYROXINE SODIUM 112 MCG TAB PO SCH (05:27)
[2016-12-01] MEDS: INSULIN NovoLIN REGULAR SUPPLEMENTAL SCALE SQ SCH ×4 (06:22→21:58)
[2016-12-01] MEDS: CEFEPIME INJ 2,000 MG in SODIUM CHLORIDE 0.9% INJ 100 ML IV SCH ×2 (08:00→21:59)
[2016-12-01] MEDS ORDERED: INSULIN HUMAN REGULAR 1,000 UNITS/10 ML VIAL SQ SCH (08:00)
[2016-12-01] MEDS: RESP: ALBUTEROL 2.5 MG/IPRATROPIUM 0.5 MG NEB (SCH) NEB ×4 (08:00→20:55)
--- NOTE | 2016-12-01 08:14 | HHI.PR ---
Subjective Remarks This is a pleasant 81 y/o Female who was brought in from local [facility] for Shortness of breath, was found lethargic and Shortness of breath in AM, Oxygen saturation was 58% at local senior care, Improving after antibiotics given in ER, also Bronchodilators, she has Hypertension, DM II, CAD, Hypothyroidism, Hyperlipidemia, CKD, Dementia with Psychosis, Bipolar Disorder. 11/30: Patient in her bedroom, in the presence of nurse Miss Garcia and her Daughter Miss Zarate she already seen by Coal Handling Supervisor Doctor Kvng Kingston, recommended to continue Zithromax and Cefepime, continue Nasal Cannula. 12/01: Stable in her bedroom, in the presence of her Daughter Miss Zarate, discussed about Tobacco dependence, her Daughter states the patient is a Heavy Smoker, strongly recommended to stop smoking. No nausea, vomit or diarrhea continue with Expiratory wheezing. Objective Vital Signs Date Time Temp Pulse Resp B/P Pulse Ox O2 Delivery O2 Flow Rate FiO2 12/01/16 06:00 68 12/01/16 05:00 64 12/01/16 04:00 100 40 12/01/16 04:00 64 12/01/16 03:14 97.9 69 20 138/88 99 12/01/16 03:00 64 12/01/16 02:00 62 12/01/16 01:00 66 12/01/16 00:18 97 Bi-Pap 40 12/01/16 00:15 97 40 12/01/16 00:11 97.9 72 20 146/75 94 12/01/16 00:00 68 11/30/16 23:00 74 11/30/16 22:50 100 40 11/30/16 22:45 98 40 11/30/16 22:00 76 11/30/16 21:09 95 Nasal Cannula 6.00 11/30/16 21:00 72 11/30/16 20:00 72 11/30/16 20:00 Nasal Cannula 4.00 11/30/16 19:26 97.9 70 20 150/79 94 11/30/16 19:00 74 11/30/16 16:00 68 11/30/16 15:00 98.7 71 20 137/77 92 11/30/16 14:00 74 11/30/16 13:00 76 11/30/16 12:00 92 11/30/16 11:30 98.3 73 22 152/80 63 11/30/16 11:00 86 11/30/16 10:00 73 11/30/16 09:00 74 I/O 11/30/16 11/30/16 11/30/16 12/01/16 12/01/16 12/01/16 07:00 15:00 23:00 07:00 15:00 23:00 Intake Total 1348 ml 1220 ml 580 ml Output Total 2450 ml 1300 ml Balance -1102 ml 1220 ml -720 ml Intake Oral 680 ml 720 ml 480 ml IV Total 668 ml 500 ml 100 ml Output Urine Total 2450 ml 1300 ml Emesis 0 ml 0 ml # Bowel Movements 0 0 Result Diagram: 11/30/16 0355 11/30/16 0355 Imaging CXR Bibasilar Patchiness Right worse than left probable Pneumonia Procedures BiPAP Other Results Laboratory Tests Test 11/29/16 11/29/16 11/29/16 11/30/16 06:45 06:53 21:04 03:55 Activated Partial 29.0 SEC Thromboplast Time Blood Gas Puncture Site LT RADIAL Blood Gas Patient Temperature 98.6 Blood Gas HCO3 30 mmol/L Blood Gas Base Excess 4.0 mmol/L Blood Gas Oxygen Saturation 94 % Arterial Blood pH 7.32 Arterial Blood Partial 60 mmHg Pressure CO2 Arterial Blood Partial 115 mmHG Pressure O2 Arterial Blood Oxygen Content 15.4 Vol % Arterial Blood 2.7 % Carboxyhemoglobin Arterial Blood Methemoglobin 1.0 % Blood Gas Hemoglobin 11.5 G/DL Oxygen Delivery Device Non-Rebreathing Mask Blood Gas Liter Flow 15 L/M Blood Gas Inspired Oxygen 100 % Lactic Acid Level 2.1 mmol/L Total Bilirubin 0.4 MG/DL Aspartate Amino Transf 20 U/L (AST/SGOT) Alanine Aminotransferase 23 U/L (ALT/SGPT) Alkaline Phosphatase 100 U/L Total Creatine Kinase 41 U/L Troponin I LESS THAN 0.02 NG/ML B-Type Natriuretic Peptide 54 PG/ML Total Protein 7.0 GM/DL Albumin 3.1 GM/DL Thyroid Stimulating Hormone 2.870 uIU/ML 3rd Gen Urine Color LIGHT-YELLOW Urine Turbidity CLEAR Urine pH 6.5 Urine Specific [place] 1.011 Urine Protein TRACE mg/dL Urine Glucose (UA) NEG mg/dL Urine Ketones NEG mg/dL Urine Occult Blood NEG Urine Nitrite NEG Urine Bilirubin NEG Urine Urobilinogen LESS THAN 2.0 MG/DL Urine Leukocyte Esterase TRACE Urine RBC LESS THAN 1 /hpf Urine WBC 3 /hpf Urine Squamous Epithelial 1 /hpf Cells Urine Bacteria RARE /hpf Microscopic Urinalysis Comment CATH-CULTURE IND Beecher Level 1.0 MEQ/L White Blood Count 16.7 TH/MM3 Red Blood Count 3.68 MIL/MM3 Hemoglobin 10.6 GM/DL Hematocrit 34.6 % Mean Corpuscular Volume 94.1 FL Mean Corpuscular Hemoglobin 28.8 PG Mean Corpuscular Hemoglobin 30.6 % Concent Red Cell Distribution Width 16.8 % Platelet Count 190 TH/MM3 Mean Platelet Volume 10.7 FL Neutrophils (%) (Auto) 97.3 % Lymphocytes (%) (Auto) 2.0 % Monocytes (%) (Auto) 0.6 % Eosinophils (%) (Auto) 0.0 % Basophils (%) (Auto) 0.1 % Neutrophils # (Auto) 16.3 TH/MM3 Lymphocytes # (Auto) 0.3 TH/MM3 Monocytes # (Auto) 0.1 TH/MM3 Eosinophils # (Auto) 0.0 TH/MM3 Basophils # (Auto) 0.0 TH/MM3 CBC Comment DIFF FINAL Differential Comment Prothrombin Time 10.7 SEC Prothromb Time International 1.0 RATIO Ratio Sodium Level 139 MEQ/L Potassium Level 4.4 MEQ/L Chloride Level 102 MEQ/L Carbon Dioxide Level 27.8 MEQ/L Anion Gap 9 MEQ/L Blood Urea Nitrogen 29 MG/DL Creatinine 1.84 MG/DL Estimat Glomerular Filtration 26 ML/MIN Rate Random Glucose 387 MG/DL Calcium Level 8.8 MG/DL Objective Remarks GENERAL: Morbid obese patient, with Nasal Cannula. SKIN: warm/dry. HEAD: Normocephalic. EYES: No scleral icterus. No injection or drainage. NECK: Supple, trachea midline. No JVD or lymphadenopathy. CARDIOVASCULAR: Regular rate and rhythm without murmurs, gallops, or rubs. RESPIRATORY: Decreased breath sounds bilateral, Expiratory Wheezing and soft diffuse Rhonchi. GASTROINTESTINAL: Abdomen soft, non-tender, nondistended. MUSCULOSKELETAL: No cyanosis, or edema. BACK: Nontender without obvious deformity. No CVA tenderness. Neurologic exam: Alert and Oriented x 3, No focal deficits. Medications and IVs Current Medications Medications (Trade) Dose Ordered Sig/Julieta Route Start Time Stop Time Status Last Admin (NS Flush) 2 ml UNSCH PRN IV FLUSH 11/29/16 09:15 (NS Flush) 2 ml BID IV FLUSH 11/29/16 21:00 11/30/16 20:31 (Tylenol) 650 mg Q4H PRN PO 11/29/16 09:15 (Zofran Inj) 4 mg Q6H PRN IVP 11/29/16 09:15 (Dulcolax Supp) 10 mg DAILY PRN RECTAL 11/29/16 09:15 (Colace) 100 mg Q12H PO 11/29/16 09:15 11/30/16 20:30 Naloxone HCl 0.4 mg 0.4 mg UNSCH PRN IV 11/29/16 09:15 (Zithromax Inj/ NS 250 ml Inj) 250 ml @ 250 mls/hr Q24H IV 11/30/16 09:00 11/30/16 09:00 (Mucinex Er) 600 mg BID PO 11/29/16 21:00 11/30/16 20:29 (Eliquis) 5 mg BID PO 11/29/16 21:00 11/30/16 20:30 (Aricept) 10 mg HS PO 11/29/16 21:00 11/30/16 20:31 (Neurontin) 300 mg TID PO 11/29/16 18:00 11/30/16 18:17 (Xalatan 0.005% Opth Soln) 1 drop HS EACH EYE 11/29/16 21:00 11/30/16 20:30 (Synthroid) 112 mcg DAILY@06 PO 11/30/16 06:00 12/01/16 05:27 (Beecher Carbonate) 300 mg BID PO 11/29/16 21:00 11/30/16 20:30 (Demadex) 10 mg DAILY PO 11/30/16 09:00 11/30/16 08:21 (SEROquel) 400 mg HS PO 11/29/16 21:00 11/30/16 20:31 (Pravachol) 40 mg DAILY PO 11/30/16 09:00 11/30/16 08:21 (D50w (Vial) Inj) 25 ml UNSCH PRN IV PUSH 11/29/16 15:00 Glucagon 1 mg 1 mg UNSCH PRN OTHER 11/29/16 15:00 (Maxipime Inj/NS Inj) 100 ml @ 200 mls/hr Q12H IV 11/29/16 20:00 11/30/16 20:35 (SoluMEDROL INJ) 40 mg DAILY IV PUSH 12/01/16 09:00 (Levemir Inj) 10 units BID SQ 11/30/16 21:00 11/30/16 20:31 (NovoLIN R INJ) 5 units TIDAC SQ 12/01/16 17:40 A/P Assessment and Plan 1. Respiratory Failure Hypercapnic Probable secondary to COPD exacerbation and Pneumonia continue Antibiotics, Bronchodilators, mucolytic and incentive spirometry, Oxygen to keep Oxygen saturation over 92%. Discussed with Respiratory Therapy specialist, switched by Doctor Vashti to Cefepime continue Azithromycin. titrated Solu-Medrol to once a day and continue titration. Improving slowly 2. Bipolar disorder/Anxiety disorder/Depression to continue Home medicines 3. CAD asked for new Echocardiogram and BNP 54, Echocardiogram performed but difficult study due to patient habitus. 4. Atrial fibrillation on Eliquis 5. Hyperlipidemia to continue Home medicines 6. Dementia to continue Home medicines 7. DM II better control on Lantus, Regular insulin and sliding scale. asked for new Hemoglobin A1C pending Insulin adjusted. 8. Hypertension Mild uncontrol continue Home medicines. 9. Hypothyroidism to continue Hormonal replacement IV. family program specialist following. DVT prophylaxis with Eliquis Code Status Alternative Code okay for Intubation. Discussed Condition With patient, her Daughter Miss Zarate Discharge Planning Expected in one to two days. Alban Shaw MD Dec 01, 2016 08:14
[2016-12-01] MEDS: INSULIN DETEMIR 100 UNITS/ML VIAL SQ SCH ×2 (09:00→21:58)
[2016-12-01] MEDS: SODIUM CHLORIDE 0.9% FLUSH 10 ML FLUSH IV FLUSH SCH ×2 (09:00→21:00)
[2016-12-01] MEDS: GABAPENTIN 300 MG CAP PO SCH ×3 (10:04→17:33)
[2016-12-01] MEDS: DOCUSATE SODIUM 100 MG CAP PO SCH ×2 (10:05→22:00)
[2016-12-01] MEDS: methylPREDNISolone SOD SUCC 40 MG/1 ML VIAL IV PUSH SCH (10:05)
[2016-12-01] MEDS: TORSEMIDE 5 MG TAB PO SCH (10:05)
[2016-12-01] MEDS: AZITHROMYCIN INJ 500 MG in SODIUM CHLOR 0.9% 250 ML INJ 250 ML IV SCH (10:05)
[2016-12-01] MEDS: APIXABAN 5 MG TABLET PO SCH ×2 (10:06→22:00)
[2016-12-01] MEDS: PRAVASTATIN SOD 40 MG TAB PO SCH (10:06)
[2016-12-01] MEDS: guaiFENesin E.R. 600 MG TAB PO SCH ×2 (10:06→22:00)
[2016-12-01] MEDS: LITHIUM CARBONATE 300 MG CAP PO SCH ×2 (10:06→22:00)
[2016-12-01 12:39] LABS: BLOOD GAS BASE EXCESS 3.2 mmol/L (-2-2); BLOOD GAS CARBOXYHEMOGLOBIN 1.4 % (0-4); BLOOD GAS HCO3 28 mmol/L (22-26); BLOOD GAS METHEMOGLOBIN 1.2 % (0-2); BLOOD GAS O2 HGB SATURATION 92 % (90-100); BLOOD GAS OXYGEN CONTENT 14.4 Vol % (12.0-20.0); BLOOD GAS PCO2 50 mmHg (38-42); BLOOD GAS PO2 78 mmHg (61-120); BLOOD GAS TOTAL HGB 11.1 G/DL (12.0-16.0); TEMP CORR TO 98.6
[2016-12-01 12:40] LABS: CRITICAL VALUE NO; DRAW SITE RT RADIAL; LITER FLOW 6 L/M; NUMBER OF ARTERIAL PUNCTURES 2; OXYGEN DEVICE NASAL CANNULA; STAT NO
[2016-12-01 13:22] LABS: BICARBONATE 27.8 MEQ/L (21.0-32.0); MAGNESIUM 2.7 MG/DL (1.5-2.5)
[2016-12-01 13:29] LABS: POTASSIUM 4.1 MEQ/L (3.5-5.1)
[2016-12-01] MEDS: INSULIN HUMAN REGULAR 1,000 UNITS/10 ML VIAL SQ SCH (17:33)
[2016-12-01] MEDS: LATANOPROST 0.005% OPHT SOLN 2.5 ML BTL EACH EYE SCH (21:59)
[2016-12-01] MEDS: DONEPEZIL HCL 5 MG TAB PO SCH (22:00)
[2016-12-01] MEDS: QUEtiapine FUMARATE 200 MG TAB PO SCH (22:00)
[2016-12-02] VITALS (28 sets, daily range): BP systolic 98–157; BP diastolic 54–92; PULSE 64–76; RESP 18–24; TEMP 97.4–98.8; O2SAT 96–100
[2016-12-02] MEDS: LEVOTHYROXINE SODIUM 112 MCG TAB PO SCH (06:16)
[2016-12-02] MEDS: INSULIN NovoLIN REGULAR SUPPLEMENTAL SCALE SQ SCH ×4 (06:16→22:07)
[2016-12-02 06:56] LABS: AUTOMATED NEUTROPHIL # 13.4 TH/MM3 (1.8-7.7); BASOPHIL # 0.1 TH/MM3 (0-0.2); BASOPHIL % 0.3 % (0.0-2.0); EOSINOPHIL # 0.1 TH/MM3 (0-0.4); EOSINOPHIL % 0.9 % (0.0-4.0); HEMATOCRIT 32.6 % (35.0-46.0); HEMO FLAGS DIFF FINAL; LYMPH % 8.8 % (9.0-44.0); LYMPHOCYTE # 1.4 TH/MM3 (1.0-4.8); MEAN CELL VOLUME 91.8 FL (80.0-100.0); MEAN CORPUSCULAR HEMOGLOBIN 29.5 PG (27.0-34.0); MEAN CORPUSCULAR HGB CONC 32.1 % (32.0-36.0); MONO % 3.9 % (0.0-8.0); NEUT % 86.1 % (16.0-70.0); PLATELET COUNT 206 TH/MM3 (150-450); RED BLOOD COUNT 3.55 MIL/MM3 (4.00-5.30); RED CELL DISTRIBUTION WIDTH 16.5 % (11.6-17.2); WHITE BLOOD COUNT 15.6 TH/MM3 (4.0-11.0)
[2016-12-02] MEDS: INSULIN HUMAN REGULAR 1,000 UNITS/10 ML VIAL SQ SCH ×3 (08:00→17:07)
[2016-12-02] MEDS: CEFEPIME INJ 2,000 MG in SODIUM CHLORIDE 0.9% INJ 100 ML IV SCH ×2 (08:00→20:34)
--- NOTE | 2016-12-02 08:13 | RADRPT ---
EXAM DATE/TIME: 12/02/2016 07:31 [facility] COMPARISON: CHEST SINGLE AP, November 29, 2016, 7:07. INDICATIONS : Shortness of breath. MEDICAL HISTORY : Chronic obstructive pulmonary disease. SURGICAL HISTORY : Pacemaker. ENCOUNTER: Subsequent ACUITY: 3 days PAIN SCORE: 0/10 LOCATION: Bilateral chest FINDINGS: Slight motion artifact. A single view of the chest demonstrates the lungs to be symmetrically aerated without evidence of mass, infiltrate or effusion. Cardiomegaly and left-sided pacemaker with 2 intac t leads. The cardiomediastinal contours are unremarkable. Osseous structures are intact. CONCLUSION: Cardiomegaly with clear lungs. Krishna Johnson MD on December 02, 2016 at 8:11 Board Certified Radiologist. This report was verified electronically.
[2016-12-02 09:18] LABS: BLOOD GAS BASE EXCESS 5.2 mmol/L (-2-2); BLOOD GAS CARBOXYHEMOGLOBIN 0.9 % (0-4); BLOOD GAS HCO3 31 mmol/L (22-26); BLOOD GAS METHEMOGLOBIN 0.7 % (0-2); BLOOD GAS O2 HGB SATURATION 92 % (90-100); BLOOD GAS OXYGEN CONTENT 16.1 Vol % (12.0-20.0); BLOOD GAS PCO2 58 mmHg (38-42); BLOOD GAS PO2 69 mmHG (61-120); BLOOD GAS TOTAL HGB 12.4 G/DL (12.0-16.0); TEMP CORR TO 98.6
[2016-12-02] MEDS: DOCUSATE SODIUM 100 MG CAP PO SCH ×2 (09:18→20:35)
[2016-12-02] MEDS: methylPREDNISolone SOD SUCC 40 MG/1 ML VIAL IV PUSH SCH (09:18)
[2016-12-02 09:19] LABS: CRITICAL VALUE YES; DRAW SITE RT RADIAL; LITER FLOW 3 L/M; NUMBER OF ARTERIAL PUNCTURES 1; OXYGEN DEVICE NASAL CANNULA; STAT NO; ULNAR PULSE PRESENT
[2016-12-02] MEDS: GABAPENTIN 300 MG CAP PO SCH ×3 (09:19→18:20)
[2016-12-02] MEDS: guaiFENesin E.R. 600 MG TAB PO SCH ×2 (09:19→20:34)
[2016-12-02] MEDS: APIXABAN 5 MG TABLET PO SCH ×2 (09:19→20:34)
[2016-12-02] MEDS: LITHIUM CARBONATE 300 MG CAP PO SCH ×2 (09:19→20:34)
[2016-12-02] MEDS: TORSEMIDE 5 MG TAB PO SCH (09:20)
[2016-12-02] MEDS: PRAVASTATIN SOD 40 MG TAB PO SCH (09:20)
[2016-12-02] MEDS: AZITHROMYCIN INJ 500 MG in SODIUM CHLOR 0.9% 250 ML INJ 250 ML IV SCH (09:20)
[2016-12-02] MEDS: SODIUM CHLORIDE 0.9% FLUSH 10 ML FLUSH IV FLUSH SCH ×2 (09:21→20:35)
[2016-12-02] MEDS: INSULIN DETEMIR 100 UNITS/ML VIAL SQ SCH ×2 (09:21→22:07)
[2016-12-02] MEDS: RESP: ALBUTEROL 2.5 MG/IPRATROPIUM 0.5 MG NEB (SCH) NEB ×3 (09:26→21:05)
--- NOTE | 2016-12-02 10:09 | HHI.PR ---
Subjective Remarks Patient sitting on her chair, her sister at the bedside discussed with them Patient is not very coherent however she told me she will not going to smoke again Stated her breathing is okay, she's not coughing Patient is afebrile, they asked for nicotine patch Objective Vitals Vital Signs Date Time Temp Pulse Resp B/P Pulse Ox O2 Delivery O2 Flow Rate FiO2 12/02/16 09:26 96 Nasal Cannula 3.00 12/02/16 04:00 98.7 64 24 150/89 97 12/02/16 03:42 99 40 12/02/16 00:00 98.3 65 20 145/84 100 12/01/16 23:45 96 40 12/01/16 20:55 99 40 12/01/16 20:00 99 Bi-Pap 12/01/16 20:00 98.5 65 20 149/70 99 12/01/16 18:00 68 12/01/16 17:00 78 12/01/16 16:00 72 12/01/16 15:30 98.4 74 20 185/89 96 12/01/16 15:00 66 12/01/16 14:00 74 12/01/16 13:32 98 Nasal Cannula 5.00 12/01/16 13:00 62 12/01/16 11:30 97.8 64 20 168/96 97 12/01/16 11:00 62 I/O 12/01/16 12/01/16 12/01/16 12/02/16 12/02/16 12/02/16 07:00 15:00 23:00 07:00 15:00 23:00 Intake Total 580 ml Output Total 1300 ml 350 ml 1550 ml Balance -720 ml -350 ml -1550 ml Intake Oral 480 ml IV Total 100 ml Output Urine Total 1300 ml 350 ml 1550 ml Emesis 0 ml # Bowel Movements 0 Result Diagram: 12/02/16 0438 12/01/16 1233 Objective Remarks GENERAL: This is a well-nourished, morbidly obese well-developed patient, in no apparent distress. CARDIOVASCULAR: Regular rate and rhythm without murmurs, gallops, or rubs. RESPIRATORY: Diffuse expiratory wheezes, diminish breath sounds bilaterally. GASTROINTESTINAL: Abdomen soft, non-tender,nondistended. Normal active bowel sounds MUSCULOSKELETAL: Extremities without clubbing, cyanosis, or edema. NEURO: Awake alert, demented. Moves all ext x4 A/P Assessment and Plan This is a pleasant 81 y/o Female who [facility], was found lethargic and Shortness of breath in AM, Oxygen saturation was 58% at local [facility], Improving after antibiotics given in ER, also Bronchodilators, she has Hypertension, DM II, CAD, Hypothyroidism, Hyperlipidemia, CKD, Dementia with Psychosis, Bipolar Disorder. 11/30: Patient in her bedroom, in the presence of nurse Miss Garcia and her Daughter Miss Zarate she already seen by [employer] Writer Doctor Kvng Kingston, recommended to continue Zithromax and Cefepime, continue Nasal Cannula. 12/01: Stable in her bedroom, in the presence of her Daughter Miss Zarate, discussed about Tobacco dependence, her Daughter states the patient is a Heavy Smoker, strongly recommended to stop smoking. No nausea, vomit or diarrhea continue with Expiratory wheezing. 12/02: Continue current management with Solu-Medrol iv antibiotic, increase Levemir to 13 units twice a day to further improve blood glucose while on a steroid, WBC 15 K mostly steroid-induced A/P: 1. Respiratory Failure Hypercapnic Probable secondary to COPD exacerbation and Pneumonia continue Antibiotics, Bronchodilators, mucolytic and incentive spirometry, Oxygen to keep Oxygen saturation over 92%. Discussed with Respiratory Therapy specialist, switched by Doctor Kingston to Cefepime continue Azithromycin. titrated Solu-Medrol to once a day and continue titration. Improving slowly 2. Bipolar disorder/Anxiety disorder/Depression to continue Home medicines 3. CAD asked for new Echocardiogram and BNP 54, Echocardiogram performed but difficult study due to patient habitus. 4. Atrial fibrillation on Eliquis 5. Hyperlipidemia to continue Home medicines 6. Dementia to continue Home medicines 7. DM II better control on Lantus, Regular insulin and sliding scale. asked for new Hemoglobin A1C pending Insulin adjusted. 8. Hypertension Mild uncontrol continue Home medicines. 9. Hypothyroidism to continue Hormonal replacement IV. 10. UTI with Morganella morganii on urine culture as well as surgeries and possibly contamination, patient was on cefepime she will be discharged on Levaquin 2 sensitive loan specialist following. DVT prophylaxis with Fausto Wasserman MD Dec 02, 2016 10:09
[2016-12-02] MEDS: NICOTINE 14 MG/24 HR PATCH T-DERMAL SCH (12:23)
--- NOTE | 2016-12-02 12:34 | HHI.HCPN ---
Reason for visit a. To assist with evaluation and management of symptoms including: dyspnea, weakness, anxiety b. To assist medical decision maker(s) with: better understanding of current medical conditions; weighing benefits/burdens of medical treatment options; making medical treatment decisions. . Subjective/Interval History Patient seen in her room, she was sitting up in recliner chair in no acute distress. Patient alert to self and situation. Confused at times but easily reoriented. Patient denies any pain or shortness of breath, however, endorsing discomfort to right arm secondary to edema. Patient tells me that she has been feeling better, however, somewhat anxious as she hasn't been able to smoke. Patient with a history of one pack of cigarettes daily. Patient's goal is to return to long-term facility once medically clear. Chest x-ray today showing cardiomegaly with clear lungs. WBC 15.6, Hgb 10.5, platelet count 206. Sodium 140, potassium 4.1, BUN/creatinine 37/1.71. Urine culture 11/29/16 positive for Morganella morganii and Viridans strep. Blood cultures were 30/08/16 no growth in 3 days. Patient's sister Fatimah a bedside, clinical update provided. Sister sharing concerns about patient smoking habits. As per sister, patient has been a little bit anxious today as she hasn't been able to smoke. Asking for nicotine patch. Review his sister that nicotine patch has been added it today. Reviewed goals of care, patient's sister wishing for patient to return to long- term facility once medically clear. Again concerns about progression of illness and likelihood of continue decline given her advanced age, multiple comorbidities, profound psychiatric history, and profound physical deconditioning. Family wishing to allow a few more days for clinical improvement. Reviewed advanced directives with patient's sister Fatimah. Patient completed healthcare surrogate name gaye Sheridan and her nephew Austin as healthcare surrogate's, however, form was not properly signed. Reviewed low regarding healthcare proxy. Reviewed that in the absence of healthcare surrogate, patient' s 4 siblings would be healthcare proxy decision makers. Obtain phone number of siblings Lalitha. Pending phone number for Alejandrina Mohamud and Andrei. . Family/friend interactions See interval note. . Advance Directives Health Care Surrogate: Copy in medical record Durable Power of Pensions Retirement Plan Specialist: Copy in medical record (Patient's sister (Fatimah Jimenez) is the DURABLE POWER OF SENIOR BI ARCHITECT - it does not include health care. However, it is unclear if the patient signed these documents.) Advance Directive Specifics Date completed: 05/28/2013 . Health Care Surrogate(s): Designation of health care surrogate form was completed on 05/28/2013 designating the patient's nephew , Austin Jimenez, as the health care surrogate medical decision maker. However, it does not appear that the document was signed by the patient. . Documented care wishes: No documented care wishes in place. . Significant change in goals: Alternate code/intubation only. Family electing to allow additional time for clinical improvement with the goal of discharging to a long-term facility. . Objective Vital Signs Date Time Temp Pulse Resp B/P Pulse Ox O2 Delivery O2 Flow Rate FiO2 12/02/16 09:26 96 Nasal Cannula 3.00 12/02/16 08:59 98.8 65 18 157/86 12/02/16 08:59 93 Nasal Cannula 12/02/16 07:00 64 12/02/16 04:00 98.7 64 24 150/89 97 12/02/16 03:42 99 40 12/02/16 00:00 98.3 65 20 145/84 100 12/01/16 23:45 96 40 12/01/16 20:55 99 40 12/01/16 20:00 99 Bi-Pap 12/01/16 20:00 98.5 65 20 149/70 99 12/01/16 18:00 68 12/01/16 17:00 78 12/01/16 16:00 72 12/01/16 15:30 98.4 74 20 185/89 96 12/01/16 15:00 66 12/01/16 14:00 74 12/01/16 13:32 98 Nasal Cannula 5.00 12/01/16 13:00 62 Intake & Output 12/02/16 12/02/16 07:00 19:00 Output Total 1900 ml Balance -1900 ml Output Urine Total 1900 ml Physical Exam CONSTITUTIONAL/GENERAL: This is an adequately nourished patient sitting up on recliner chair in no acute distress. TUBES/LINES/DRAINS: PIV's, Ken catheter. Nasal cannula. BiPAP as needed. SKIN: No jaundice, rashes, or lesions. Ecchymoses on upper extremities. No wounds seen anteriorly. Skin temperature appropriate. Not diaphoretic. HEAD: Atraumatic. Normocephalic. EYES: Pupils equal and round and reactive. No scleral icterus. ENT: Hearing grossly normal. Nose with cespedes nasal discharge. NECK: Trachea midline. CARDIOVASCULAR: Regular rate and rhythm without murmurs, gallops, or rubs. +3 for edema to bilateral upper extremities, right more than left. +2 edema to bilateral lower extremities. RESPIRATORY/CHEST: Coarse breath sounds bilaterally. O2 via nasal cannula. GASTROINTESTINAL: Abdomen round, large, soft, non-tender. Positive bowel sounds. GENITOURINARY: Without palpable bladder distension. Ken catheter in place. MUSCULOSKELETAL: Extremities without clubbing, cyanosis. NEUROLOGICAL: Alert and oriented times self, place and situation. Confused/ forgetful at times but easily reoriented. Moving all extremities. Verbal and able to communicate needs. PSYCHIATRIC: Pleasant and cooperative. . Diagnostic Tests Laboratory Laboratory Tests Test 11/29/16 11/30/16 12/01/16 12/01/16 21:04 03:55 12:30 12:33 [place] Level 1.0 MEQ/L (0.5-1.5) White Blood Count 16.7 TH/MM3 (4.0-11.0) Red Blood Count 3.68 MIL/MM3 (4.00-5.30) Hemoglobin 10.6 GM/DL (11.6-15.3) Hematocrit 34.6 % (35.0-46.0) Mean Corpuscular Volume 94.1 FL (80.0-100.0) Mean Corpuscular Hemoglobin 28.8 PG (27.0-34.0) Mean Corpuscular Hemoglobin 30.6 % Concent (32.0-36.0) Red Cell Distribution Width 16.8 % (11.6-17.2) Platelet Count 190 TH/MM3 (150-450) Mean Platelet Volume 10.7 FL (7.0-11.0) Neutrophils (%) (Auto) 97.3 % (16.0-70.0) Lymphocytes (%) (Auto) 2.0 % (9.0-44.0) Monocytes (%) (Auto) 0.6 % (0.0-8.0) Eosinophils (%) (Auto) 0.0 % (0.0-4.0) Basophils (%) (Auto) 0.1 % (0.0-2.0) Neutrophils # (Auto) 16.3 TH/MM3 (1.8-7.7) Lymphocytes # (Auto) 0.3 TH/MM3 (1.0-4.8) Monocytes # (Auto) 0.1 TH/MM3 (0-0.9) Eosinophils # (Auto) 0.0 TH/MM3 (0-0.4) Basophils # (Auto) 0.0 TH/MM3 (0-0.2) CBC Comment DIFF FINAL Differential Comment Prothrombin Time 10.7 SEC (9.8-11.6) Prothromb Time International 1.0 RATIO Ratio Sodium Level 139 MEQ/L 140 MEQ/L (136-145) (136-145) Potassium Level 4.4 MEQ/L 4.1 MEQ/L (3.5-5.1) (3.5-5.1) Chloride Level 102 MEQ/L 104 MEQ/L (98-107) (98-107) Carbon Dioxide Level 27.8 MEQ/L 27.8 MEQ/L (21.0-32.0) (21.0-32.0) Anion Gap 9 MEQ/L (5-15) 8 MEQ/L (5-15) Blood Urea Nitrogen 29 MG/DL (7-18) 37 MG/DL (7-18) Creatinine 1.84 MG/DL 1.71 MG/DL (0.50-1.00) (0.50-1.00) Estimat Glomerular Filtration 26 ML/MIN (>89) 29 ML/MIN (>89) Rate Random Glucose 387 MG/DL 151 MG/DL (74-106) (74-106) Calcium Level 8.8 MG/DL 9.6 MG/DL (8.5-10.1) (8.5-10.1) Blood Gas Puncture Site RT RADIAL Blood Gas Patient Temperature 98.6 Blood Gas HCO3 28 mmol/L (22-26) Blood Gas Base Excess 3.2 mmol/L (-2-2) Blood Gas Oxygen Saturation 92 % (90-100) Arterial Blood pH 7.37 (7.380-7.420) Arterial Blood Partial 50 mmHg (38-42) Pressure CO2 Arterial Blood Partial 78 mmHg Pressure O2 (61-120) Arterial Blood Oxygen Content 14.4 Vol % (12.0-20.0) Arterial Blood 1.4 % (0-4) Carboxyhemoglobin Arterial Blood Methemoglobin 1.2 % (0-2) Blood Gas Hemoglobin 11.1 G/DL (12.0-16.0) Oxygen Delivery Device NASAL CANNULA Blood Gas Liter Flow 6 L/M Magnesium Level 2.7 MG/DL (1.5-2.5) Test 12/02/16 12/02/16 04:38 08:50 White Blood Count 15.6 TH/MM3 (4.0-11.0) Red Blood Count 3.55 MIL/MM3 (4.00-5.30) Hemoglobin 10.5 GM/DL (11.6-15.3) Hematocrit 32.6 % (35.0-46.0) Mean Corpuscular Volume 91.8 FL (80.0-100.0) Mean Corpuscular Hemoglobin 29.5 PG (27.0-34.0) Mean Corpuscular Hemoglobin 32.1 % Concent (32.0-36.0) Red Cell Distribution Width 16.5 % (11.6-17.2) Platelet Count 206 TH/MM3 (150-450) Mean Platelet Volume 10.7 FL (7.0-11.0) Neutrophils (%) (Auto) 86.1 % (16.0-70.0) Lymphocytes (%) (Auto) 8.8 % (9.0-44.0) Monocytes (%) (Auto) 3.9 % (0.0-8.0) Eosinophils (%) (Auto) 0.9 % (0.0-4.0) Basophils (%) (Auto) 0.3 % (0.0-2.0) Neutrophils # (Auto) 13.4 TH/MM3 (1.8-7.7) Lymphocytes # (Auto) 1.4 TH/MM3 (1.0-4.8) Monocytes # (Auto) 0.6 TH/MM3 (0-0.9) Eosinophils # (Auto) 0.1 TH/MM3 (0-0.4) Basophils # (Auto) 0.1 TH/MM3 (0-0.2) CBC Comment DIFF FINAL Differential Comment Blood Gas Puncture Site RT RADIAL Blood Gas Patient Temperature 98.6 Blood Gas HCO3 31 mmol/L (22-26) Blood Gas Base Excess 5.2 mmol/L (-2-2) Blood Gas Oxygen Saturation 92 % (90-100) Arterial Blood pH 7.35 (7.380-7.420) Arterial Blood Partial 58 mmHg (38-42) Pressure CO2 Arterial Blood Partial 69 mmHG Pressure O2 (61-120) Arterial Blood Oxygen Content 16.1 Vol % (12.0-20.0) Arterial Blood 0.9 % (0-4) Carboxyhemoglobin Arterial Blood Methemoglobin 0.7 % (0-2) Blood Gas Hemoglobin 12.4 G/DL (12.0-16.0) Oxygen Delivery Device NASAL CANNULA Blood Gas Liter Flow 3 L/M Result Diagram: 12/02/16 0438 12/01/16 1233 Imaging Last 48 hours Impressions Chest X-Ray 12/02/16 0800 Signed Impressions: Service Date/Time: Friday, December 02, 2016 07:31 - CONCLUSION: Cardiomegaly with clear lungs. Krishna Jhonson MD Assessment and Plan Disease Oriented Problem List: (1) Pneumonia (2) Respiratory failure Comment: Hypercapnic respiratory failure, likely secondary to COPD exacerbation and pneumonia. Plan to continue IV antibiotics, bronchodilators, mucolytic's and incentive spirometer. Maintain oxygen saturations >92%. (3) dementia (4) Anxiety disorder (5) Bipolar affective disorder Symptom Scale: (1) Weakness Comment: Patient lived with her sister for many years. She was placed in a long -term care facility approximately 5 years ago when her sister was no longer able to able to care for her. The patient's trajectory of decline has become more acute over the past 12 months per the family's report. Patient is now primarily bedbound. She is able to bare weight and pivot to transfer. She is dependent for all ADLs. . (2) Dyspnea Comment: Currently tolerating O2 via nasal cannula. BiPAP when necessary. (3) Anxiety Comment: Patient has a chronic history of anxiety disorder which is likely exacerbated secondary to the patient's dyspnea, hospitalization. . Pertinent Non-Medical Issues Psychosocial: Patient was born in [place], [place] but has lived in [place] for many years. The patient has 4 sisters; Sisi, Tiesha, Lalitha and Andrei. Three of her sisters live locally and one lives in [place], [place]. Patient completed her high school education and [place]. 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 Patient's sister states she was for a short period of time. She never had children. In reviewing previous notes, in the past the patient was an extremely social person who enjoyed spending time with her friends and dancing. She has a lengthy psychiatric history with multiple hospitalizations. 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 Patient's family is extremely supportive, and someone tries to visit her at [facility] daily. Spiritual: Christian armen Legal: Patient's sister (Fatimah Jimenez) and nephew (Austin Jimenez) met with palliative care earlier today 11/29/2016. They request that the patient's medical conditions be treated aggressively. If the patient's respiratory distress worsens, they state they would proceed with intubation and mechanical ventilation in an attempt to get the patient through this pulmonary crisis. They state they would not want the patient to remain on mechanical ventilator for a prolonged period of time. Copies of a community DNR, designation of health care surrogate form and DURABLE POWER OF SENIOR BI ARCHITECT are in the patient's chart and were faxed to HIM to be scanned into the patient's EMR. However, it appears that none of these documentations were signed by the patient and are therefore not legally binding. Per [place] statutes, in the absence of written advanced directives healthcare proxy decision making would fall to the majority of the patient's for adult siblings (she is not and never had children) . I spoke with the nurse practitioner at [facility], and it appears that one sister (Fatimah Jimenez) has been making healthcare decisions and financial decisions for the patient for an extended period of time. [place] statutes were reviewed with [facility] staff, the patient's sister (Fatimah Jimenez) and nephew (Austin Cardenas) and I have asked for contact information for the 3 remaining sisters (Lalitha Salas, Tiesha and Andrei). Ethical issues impacting care: No known ethical issues impacting care at this time. . Important Contacts Nephew: Austin CarolynPoonam Jimenez, [facility]: [phone] or [phone] Sister: Fatimah Jimenez, sister: [phone] or [phone] Sister: Tiesha -pending phone number Sister: Lalitha - . Sister: andrei -pending phone number . Prognosis Patient is a 81-year-old female with an extensive medical history that includes that includes bipolar disorder, anxiety/depression, arrhythmia, hypothyroidism, CAD, hyperlipidemia, CHF, h/o CVA, dementia with psychosis, DM II, HTN, and a h/ o brain tumor with debulking surgery. The patient is a long-term resident at [facility]. She is currently hospitalized with hypercapnic respiratory failure likely secondary to COPD exacerbation and pneumonia. Patient has had a slow decline over the past several years with the trajectory of her decline becoming more acute in the past 12 months. She is now primarily bedbound and dependent for all ADLs. Given the patient's advanced age, multiple comorbid conditions and overall poor performance status-her overall prognosis is likely poor. . Code Status: Alternative Code Plan * ALTERNATE CODE-intubation only * HEALTHCARE DECISION-MAKING: Copies of a community DNR, designation of health care surrogate form and DURABLE POWER OF SENIOR BI ARCHITECT are in the patient's chart. However, it appears that none of these documents were signed by the patient, and therefore are not legally binding. Per [place] statutes, in the absence of written advanced directives healthcare proxy decision making falls to the majority of the patient's four sisters (she is not and does not have children). Fatimah Jimenez) has been making healthcare and financial decisions for the patient for an extended period of time. [place] statutes were reviewed with [facility] staff, the patient's sister: Fatimah Jimenez , Lalitha Maritza, Tiesha and Andrei. Palliative care to assist patient with completion of healthcare surrogate documentation once she is able to make medical decisions. * GOALS OF CARE: Goals of care remain aggressive at this time short of no no cardiac code. Family wishing to allow additional time for clinical improvement with the goal of discharging to long-term facility. Patient's sister (Fatimah Jimenez) and nephew (Austin Jimenez) met with palliative care on 11/29/2016 and again today. They requested that the patient's medical conditions be treated aggressively short of no cardiac code. If the patient's respiratory distress worsens, they state they would want to proceed with intubation and mechanical ventilation in an attempt to get the patient through this pulmonary crisis. They state they would not want the patient to remain on mechanical ventilation for a prolonged period of time. * SYMPTOM MANAGEMENT: == Dyspnea: Secondary to COPD exacerbation and pneumonia. Currently tolerating O2 via nasal cannula. BiPAP as needed. On daily prednisone. == Debility: Progressive unlikely to worsen. Patient is dependent on all ADLs and is a long-term resident of facility. Goal to discharge back to long-term facility. == Anxiety: Exacerbated by shortness of breath and nicotine withdrawal. Patient with a history of smoking one pack of cigarettes daily. She was started on nicotine patch today. Patient TO continue her regimen of Seroquel at bedtime. == Chronic pain: On home regimen of gabapentin. * Palliative care will continue to follow-up with this patient and family as the clinical course evolves. * Palliative care to assist patient with completion of healthcare surrogate documentation once she is able to make medical decisions. * Palliative care contact information has been provided. . Time Spent Total Floor Time (mins): 38 (Total time to include review medical records, physical exam, bedside conversation with sister.) >50% Counseling/Coord of Care: Yes Attestation To help prompt me to consider important information that might be impacting today's encounter and assessment, information from prior notes written by myself or my colleagues may have been "brought forward" into today's note. My signature on this note, however, is an attestation that I personally performed the exam, history, and/or decision-making noted today, and, unless otherwise indicated, the interactions with patient, family, and staff as well as the review of records all occurred today. I also attest that the listed assessment and stated plan reflect my best clinical judgment today based on the combination of historical information, prior notes, and today's exam/ interactions. When time spent is documented, it refers only to time spent today by the signer, or if indicated, combined time spent today by collaborating physician/nurse practitioner. Yulia Contreras Dec 02, 2016 12:34
[2016-12-02 13:23] LABS: HEMOGLOBIN A1a 1.3 %; HEMOGLOBIN A1b 2.5 %; HEMOGLOBIN LA1C 2.3 %; HEMOGLOBIN P3 6.8 %
[2016-12-02] MEDS: LATANOPROST 0.005% OPHT SOLN 2.5 ML BTL EACH EYE SCH (20:34)
[2016-12-02] MEDS: DONEPEZIL HCL 5 MG TAB PO SCH (20:35)
[2016-12-02] MEDS: QUEtiapine FUMARATE 200 MG TAB PO SCH (20:35)
[2016-12-03] VITALS (25 sets, daily range): BP systolic 132–149; BP diastolic 62–90; PULSE 61–80; RESP 15–24; TEMP 97.4–98.5; O2SAT 88–100
[2016-12-03] MEDS: LEVOTHYROXINE SODIUM 112 MCG TAB PO SCH (06:02)
[2016-12-03] MEDS: INSULIN NovoLIN REGULAR SUPPLEMENTAL SCALE SQ SCH ×4 (06:02→21:50)
[2016-12-03] MEDS: RESP: ALBUTEROL 2.5 MG/IPRATROPIUM 0.5 MG NEB (SCH) NEB ×3 (08:15→19:03)
[2016-12-03] MEDS: APIXABAN 5 MG TABLET PO SCH ×2 (08:55→21:51)
[2016-12-03] MEDS: predniSONE 20 MG TAB PO SCH (08:55)
[2016-12-03] MEDS: DOCUSATE SODIUM 100 MG CAP PO SCH ×2 (08:55→21:51)
[2016-12-03] MEDS: GABAPENTIN 300 MG CAP PO SCH ×3 (08:55→18:35)
[2016-12-03] MEDS: guaiFENesin E.R. 600 MG TAB PO SCH ×2 (08:55→21:51)
[2016-12-03] MEDS: LITHIUM CARBONATE 300 MG CAP PO SCH ×2 (08:55→23:41)
[2016-12-03] MEDS: INSULIN HUMAN REGULAR 1,000 UNITS/10 ML VIAL SQ SCH ×3 (08:56→18:35)
[2016-12-03] MEDS: CEFEPIME INJ 2,000 MG in SODIUM CHLORIDE 0.9% INJ 100 ML IV SCH ×2 (08:56→23:00)
[2016-12-03] MEDS: PRAVASTATIN SOD 40 MG TAB PO SCH (08:56)
[2016-12-03] MEDS: TORSEMIDE 5 MG TAB PO SCH (08:56)
[2016-12-03] MEDS: AZITHROMYCIN INJ 500 MG in SODIUM CHLOR 0.9% 250 ML INJ 250 ML IV SCH (08:56)
[2016-12-03] MEDS: SODIUM CHLORIDE 0.9% FLUSH 10 ML FLUSH IV FLUSH SCH ×2 (08:57→21:50)
[2016-12-03] MEDS: INSULIN DETEMIR 100 UNITS/ML VIAL SQ SCH (08:57)
[2016-12-03] MEDS: REMOVE OLD PATCH T-DERMAL SCH (09:00)
[2016-12-03] MEDS: NICOTINE 14 MG/24 HR PATCH T-DERMAL SCH (09:05)
--- NOTE | 2016-12-03 14:01 | HHI.PR ---
Subjective Remarks Resting in bed, sister at the bedside, stated she feels okay, still on O2, In general patient and her family for historian but she seems to be comfortable we'll continue iv antibiotic possible switch to by mouth in a.m. Objective Vitals Vital Signs Date Time Temp Pulse Resp B/P Pulse Ox O2 Delivery O2 Flow Rate FiO2 12/03/16 13:00 73 12/03/16 12:15 88 Nasal Cannula 3.00 12/03/16 12:00 80 12/03/16 11:00 72 12/03/16 11:00 96 Bi-Pap 40 12/03/16 11:00 98.5 80 15 141/78 96 12/03/16 10:00 72 12/03/16 09:26 99 40 12/03/16 09:00 96 Bi-Pap 40 12/03/16 09:00 72 12/03/16 08:00 68 12/03/16 07:00 66 12/03/16 07:00 97.8 80 18 147/90 96 12/03/16 07:00 96 Nasal Cannula 3.00 12/03/16 06:22 77 12/03/16 05:24 68 12/03/16 04:15 68 12/03/16 03:49 97.4 70 18 149/88 100 12/03/16 03:49 100 Bi-Pap 40 12/03/16 03:34 96 40 12/03/16 03:09 69 12/03/16 02:00 68 12/03/16 01:29 61 12/03/16 00:34 66 12/02/16 23:15 100 Bi-Pap 40 12/02/16 23:15 97.4 68 18 143/77 100 12/02/16 23:00 66 12/02/16 22:00 68 12/02/16 21:11 96 40 12/02/16 21:10 96 BiPAP 40 12/02/16 21:00 70 12/02/16 20:30 68 12/02/16 19:15 100 Nasal Cannula 3.00 12/02/16 19:15 98.3 68 18 147/85 100 12/02/16 19:00 70 12/02/16 18:01 69 12/02/16 17:00 76 12/02/16 16:00 68 12/02/16 15:59 98.4 67 20 149/92 100 12/02/16 15:00 68 12/02/16 14:01 68 I/O 12/02/16 12/02/16 12/02/16 12/03/16 12/03/16 12/03/16 07:00 15:00 23:00 07:00 15:00 23:00 Intake Total 970 ml 340 ml Output Total 1550 ml 1625 ml 1500 ml Balance -1550 ml -655 ml -1160 ml Intake Oral 720 ml 240 ml IV Total 250 ml 100 ml Output Urine Total 1550 ml 1625 ml 1500 ml # Bowel Movements 0 Result Diagram: 12/02/16 0438 12/01/16 1233 Objective Remarks GENERAL: This is a well-nourished, morbidly obese well-developed patient, in no apparent distress. CARDIOVASCULAR: Regular rate and rhythm without murmurs, gallops, or rubs. RESPIRATORY: Diffuse expiratory wheezes, diminish breath sounds bilaterally. GASTROINTESTINAL: Abdomen soft, non-tender,nondistended. Normal active bowel sounds MUSCULOSKELETAL: Extremities without clubbing, cyanosis, or edema. NEURO: Awake alert, demented. Moves all ext x4 A/P Assessment and Plan This is a pleasant 81 y/o Female who was brought in from local long term for Shortness of breath, was found lethargic and Shortness of breath in AM, Oxygen saturation was 58% at local intermediate, Improving after antibiotics given in ER, also Bronchodilators, she has Hypertension, DM II, CAD, Hypothyroidism, Hyperlipidemia, CKD, Dementia with Psychosis, Bipolar Disorder. 11/30: Patient in her bedroom, in the presence of nurse Miss Garcia and her Daughter Miss Zarate she already seen by Electric Track Switch Maintainer Doctor Kvng Kingston, recommended to continue Zithromax and Cefepime, continue Nasal Cannula. 12/01: Stable in her bedroom, in the presence of her Daughter Miss Zarate, discussed about Tobacco dependence, her Daughter states the patient is a Heavy Smoker, strongly recommended to stop smoking. No nausea, vomit or diarrhea continue with Expiratory wheezing. 12/02: Continue current management with Solu-Medrol iv antibiotic, increase Levemir to 13 units twice a day to further improve blood glucose while on a steroid, WBC 15 K mostly steroid-induced 12/03: Continue iv antibiotic possible switch to by mouth in a.m. on prednisone, F BG is low in the 70s, will decrease Levemir p.m. to 10 units, and monitor A/P: 1. Respiratory Failure Hypercapnic Probable secondary to COPD exacerbation and Pneumonia continue Antibiotics, Bronchodilators, mucolytic and incentive spirometry, Oxygen to keep Oxygen saturation over 92%. Discussed with Respiratory Therapy specialist, switched by Doctor Vashti to Cefepime continue Azithromycin. titrated Solu-Medrol to once a day and continue titration. Improving slowly 2. Bipolar disorder/Anxiety disorder/Depression to continue Home medicines 3. CAD asked for new Echocardiogram and BNP 54, Echocardiogram performed but difficult study due to patient habitus. 4. Atrial fibrillation on Eliquis 5. Hyperlipidemia to continue Home medicines 6. Dementia to continue Home medicines 7. DM II better control on Lantus, Regular insulin and sliding scale. asked for new Hemoglobin A1C pending Insulin adjusted. 8. Hypertension Mild uncontrol continue Home medicines. 9. Hypothyroidism to continue Hormonal replacement IV. 10. UTI with Morganella morganii on urine culture as well as surgeries and possibly contamination, patient was on cefepime she will be discharged on Levaquin 2 sensitive training specialist following. DVT prophylaxis with Fausto Wasserman MD Dec 03, 2016 14:01
[2016-12-03 14:54] LABS: AUTOMATED NEUTROPHIL # 13.8 TH/MM3 (1.8-7.7); BASOPHIL % 0.1 % (0.0-2.0); EOSINOPHIL % 0.1 % (0.0-4.0); HEMATOCRIT 36.9 % (35.0-46.0); LYMPHOCYTE # 0.9 TH/MM3 (1.0-4.8); MEAN CELL VOLUME 92.6 FL (80.0-100.0); MEAN CORPUSCULAR HEMOGLOBIN 27.9 PG (27.0-34.0); MEAN CORPUSCULAR HGB CONC 30.2 % (32.0-36.0); MONO % 2.8 % (0.0-8.0); PLATELET COUNT 204 TH/MM3 (150-450); RED BLOOD COUNT 3.99 MIL/MM3 (4.00-5.30); RED CELL DISTRIBUTION WIDTH 16.4 % (11.6-17.2); WHITE BLOOD COUNT 15.2 TH/MM3 (4.0-11.0)
[2016-12-03 14:56] LABS: HEMO FLAGS AUTO DIFF
--- NOTE | 2016-12-03 15:17 | HHI.HCPN ---
Reason for visit a. To assist with evaluation and management of symptoms including: dyspnea, weakness, anxiety b. To assist medical decision maker(s) with: better understanding of current medical conditions; weighing benefits/burdens of medical treatment options; making medical treatment decisions. . Subjective/Interval History Patient seen in her room, she was sitting up in her bed in no acute distress. patient alert to self and situation. Confused at times but easily reoriented. Patient denies any pain, nausea/vomiting or abdominal discomfort. Endorsing shortness of breath on exertion. Reports feeling much better than yesterday. Patient tells me that she is eager to return to her long-term facility. She further tells me that she will be quitting smoking as she knows that "is not good" for her. Laboratory today WBC 15.2, Hgb 11.1, platelet count 204. No new imaging. Patient's sister Fatimah a bedside, clinical update provided. Goals of care remains unchanged, patient and family wishing to return to long-term facility once medically cleared. Reviewed likely progression of illness and likelihood with progressive decline given her advanced age, multiple comorbidities, profound psychiatric history, and profound physical deconditioning. Patient at high risk for further complications and . Sister verbalized understanding. Patient tells me that in the event that she is unable to make medical decisions on her behalf, she will like her sister Fatimah to continue making medical decisions. Patient previously completed healthcare surrogate documentation but failed to sign document. Assisted incompletion of form. Patient was clearly able to verbalize her wishes regarding healthcare surrogate. . Family/friend interactions See interval note. . Advance Directives Health Care Surrogate: Copy in medical record Durable Power of Water Team Leader: Copy in medical record (Patient's sister (Fatimah Jimenez) is the DURABLE POWER OF WATER RESOURCE MANAGER - it does not include health care. However, it is unclear if the patient signed these documents.) Advance Directive Specifics Date completed: 12/03/2016. . Health Care Surrogate(s): Patient designated her sister Fatimah as healthcare surrogate, alternating is her nephew Austin Jimenez. . Documented care wishes: No documented care wishes in place. . Significant change in goals: Alternate code/intubation only. Patient and family electing to discharge to long-term facility. . Objective Vital Signs Date Time Temp Pulse Resp B/P Pulse Ox O2 Delivery O2 Flow Rate FiO2 12/03/16 14:00 76 12/03/16 13:00 73 12/03/16 12:15 88 Nasal Cannula 3.00 12/03/16 12:00 80 12/03/16 11:00 72 12/03/16 11:00 96 Bi-Pap 40 12/03/16 11:00 98.5 80 15 141/78 96 12/03/16 10:00 72 12/03/16 09:26 99 40 12/03/16 09:00 96 Bi-Pap 40 12/03/16 09:00 72 12/03/16 08:00 68 12/03/16 07:00 66 12/03/16 07:00 97.8 80 18 147/90 96 12/03/16 07:00 96 Nasal Cannula 3.00 12/03/16 06:22 77 12/03/16 05:24 68 12/03/16 04:15 68 12/03/16 03:49 97.4 70 18 149/88 100 12/03/16 03:49 100 Bi-Pap 40 12/03/16 03:34 96 40 12/03/16 03:09 69 12/03/16 02:00 68 12/03/16 01:29 61 12/03/16 00:34 66 12/02/16 23:15 100 Bi-Pap 40 12/02/16 23:15 97.4 68 18 143/77 100 12/02/16 23:00 66 12/02/16 22:00 68 12/02/16 21:11 96 40 12/02/16 21:10 96 BiPAP 40 12/02/16 21:00 70 12/02/16 20:30 68 12/02/16 19:15 100 Nasal Cannula 3.00 12/02/16 19:15 98.3 68 18 147/85 100 12/02/16 19:00 70 12/02/16 18:01 69 12/02/16 17:00 76 12/02/16 16:00 68 12/02/16 15:59 98.4 67 20 149/92 100 Physical Exam CONSTITUTIONAL/GENERAL: This is an adequately nourished patient sitting up in bed in no acute distress. TUBES/LINES/DRAINS: PIV's, Ken catheter. Nasal cannula. BiPAP as needed. SKIN: No jaundice, rashes, or lesions. Ecchymoses on upper extremities. No wounds seen anteriorly. Skin temperature appropriate. Not diaphoretic. HEAD: Atraumatic. Normocephalic. EYES: Pupils equal and round and reactive. No scleral icterus. ENT: Hearing grossly normal. Nose with cespedes nasal discharge. NECK: Trachea midline. CARDIOVASCULAR: Regular rate and rhythm without murmurs, gallops, or rubs. +3 for edema to bilateral upper extremities, right more than left. +2 edema to bilateral lower extremities. RESPIRATORY/CHEST: Coarse breath sounds bilaterally. Diminished. O2 via nasal cannula. GASTROINTESTINAL: Abdomen round, large, soft, non-tender. Positive bowel sounds. GENITOURINARY: Without palpable bladder distension. Ken catheter in place. MUSCULOSKELETAL: Extremities without clubbing, cyanosis. NEUROLOGICAL: Alert and oriented times self, place and situation. Confused/ forgetful at times but easily reoriented. Moving all extremities. Verbal and able to communicate needs. PSYCHIATRIC: Pleasant and cooperative. . Diagnostic Tests Laboratory Laboratory Tests Test 12/01/16 12/01/16 12/01/16 12/02/16 09:03 12:30 12:33 04:38 Hemoglobin A1c 8.3 % (4.3-6.0) Blood Gas Puncture Site RT RADIAL Blood Gas Patient Temperature 98.6 Blood Gas HCO3 28 mmol/L (22-26) Blood Gas Base Excess 3.2 mmol/L (-2-2) Blood Gas Oxygen Saturation 92 % (90-100) Arterial Blood pH 7.37 (7.380-7.420) Arterial Blood Partial 50 mmHg (38-42) Pressure CO2 Arterial Blood Partial 78 mmHg Pressure O2 (61-120) Arterial Blood Oxygen Content 14.4 Vol % (12.0-20.0) Arterial Blood 1.4 % (0-4) Carboxyhemoglobin Arterial Blood Methemoglobin 1.2 % (0-2) Blood Gas Hemoglobin 11.1 G/DL (12.0-16.0) Oxygen Delivery Device NASAL CANNULA Blood Gas Liter Flow 6 L/M Sodium Level 140 MEQ/L (136-145) Potassium Level 4.1 MEQ/L (3.5-5.1) Chloride Level 104 MEQ/L (98-107) Carbon Dioxide Level 27.8 MEQ/L (21.0-32.0) Anion Gap 8 MEQ/L (5-15) Blood Urea Nitrogen 37 MG/DL (7-18) Creatinine 1.71 MG/DL (0.50-1.00) Estimat Glomerular Filtration 29 ML/MIN (>89) Rate Random Glucose 151 MG/DL (74-106) Calcium Level 9.6 MG/DL (8.5-10.1) Magnesium Level 2.7 MG/DL (1.5-2.5) White Blood Count 15.6 TH/MM3 (4.0-11.0) Red Blood Count 3.55 MIL/MM3 (4.00-5.30) Hemoglobin 10.5 GM/DL (11.6-15.3) Hematocrit 32.6 % (35.0-46.0) Mean Corpuscular Volume 91.8 FL (80.0-100.0) Mean Corpuscular Hemoglobin 29.5 PG (27.0-34.0) Mean Corpuscular Hemoglobin 32.1 % Concent (32.0-36.0) Red Cell Distribution Width 16.5 % (11.6-17.2) Platelet Count 206 TH/MM3 (150-450) Mean Platelet Volume 10.7 FL (7.0-11.0) Neutrophils (%) (Auto) 86.1 % (16.0-70.0) Lymphocytes (%) (Auto) 8.8 % (9.0-44.0) Monocytes (%) (Auto) 3.9 % (0.0-8.0) Eosinophils (%) (Auto) 0.9 % (0.0-4.0) Basophils (%) (Auto) 0.3 % (0.0-2.0) Neutrophils # (Auto) 13.4 TH/MM3 (1.8-7.7) Lymphocytes # (Auto) 1.4 TH/MM3 (1.0-4.8) Monocytes # (Auto) 0.6 TH/MM3 (0-0.9) Eosinophils # (Auto) 0.1 TH/MM3 (0-0.4) Basophils # (Auto) 0.1 TH/MM3 (0-0.2) CBC Comment DIFF FINAL Differential Comment Test 12/02/16 12/03/16 08:50 14:39 Blood Gas Puncture Site RT RADIAL Blood Gas Patient Temperature 98.6 Blood Gas HCO3 31 mmol/L (22-26) Blood Gas Base Excess 5.2 mmol/L (-2-2) Blood Gas Oxygen Saturation 92 % (90-100) Arterial Blood pH 7.35 (7.380-7.420) Arterial Blood Partial 58 mmHg (38-42) Pressure CO2 Arterial Blood Partial 69 mmHG Pressure O2 (61-120) Arterial Blood Oxygen Content 16.1 Vol % (12.0-20.0) Arterial Blood 0.9 % (0-4) Carboxyhemoglobin Arterial Blood Methemoglobin 0.7 % (0-2) Blood Gas Hemoglobin 12.4 G/DL (12.0-16.0) Oxygen Delivery Device NASAL CANNULA Blood Gas Liter Flow 3 L/M White Blood Count 15.2 TH/MM3 (4.0-11.0) Red Blood Count 3.99 MIL/MM3 (4.00-5.30) Hemoglobin 11.1 GM/DL (11.6-15.3) Hematocrit 36.9 % (35.0-46.0) Mean Corpuscular Volume 92.6 FL (80.0-100.0) Mean Corpuscular Hemoglobin 27.9 PG (27.0-34.0) Mean Corpuscular Hemoglobin 30.2 % Concent (32.0-36.0) Red Cell Distribution Width 16.4 % (11.6-17.2) Platelet Count 204 TH/MM3 (150-450) Mean Platelet Volume 10.3 FL (7.0-11.0) Neutrophils (%) (Auto) 91.0 % (16.0-70.0) Lymphocytes (%) (Auto) 6.0 % (9.0-44.0) Monocytes (%) (Auto) 2.8 % (0.0-8.0) Eosinophils (%) (Auto) 0.1 % (0.0-4.0) Basophils (%) (Auto) 0.1 % (0.0-2.0) Neutrophils # (Auto) 13.8 TH/MM3 (1.8-7.7) Lymphocytes # (Auto) 0.9 TH/MM3 (1.0-4.8) Monocytes # (Auto) 0.4 TH/MM3 (0-0.9) Eosinophils # (Auto) 0.0 TH/MM3 (0-0.4) Basophils # (Auto) 0.0 TH/MM3 (0-0.2) CBC Comment AUTO DIFF Result Diagram: 12/03/16 1439 12/01/16 1233 Assessment and Plan Disease Oriented Problem List: (1) Pneumonia (2) Respiratory failure Comment: Hypercapnic respiratory failure, likely secondary to COPD exacerbation and pneumonia. Plan to continue IV antibiotics, bronchodilators, mucolytic's and incentive spirometer. Maintain oxygen saturations >92%. (3) dementia (4) Anxiety disorder (5) Bipolar affective disorder Symptom Scale: (1) Weakness 0-10 Scale: Unable to quantify Comment: Patient lived with her sister for many years. She was placed in a long -term care facility approximately 5 years ago when her sister was no longer able to able to care for her. The patient's trajectory of decline has become more acute over the past 12 months per the family's report. Patient is now primarily bedbound. She is able to bare weight and pivot to transfer. She is dependent for all ADLs. . (2) Dyspnea Comment: Currently tolerating O2 via nasal cannula. BiPAP when necessary. (3) Anxiety 0-10 Scale: Unable to quantify Comment: Patient has a chronic history of anxiety disorder which is likely exacerbated secondary to the patient's dyspnea, hospitalization. . Pertinent Non-Medical Issues Psychosocial: Patient was born in [place], [place] but has lived in [place] for many years. The patient has 4 sisters; Sisi, Tiesha, Lalitha and Andrei. Three of her sisters live locally and one lives in [place], [place]. Patient completed her high school education and [place]. 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 Patient's sister states she was for a short period of time. She never had children. In reviewing previous notes, in the past the patient was an extremely social person who enjoyed spending time with her friends and dancing. She has a lengthy psychiatric history with multiple hospitalizations. She lived with her sister (Sisi) or many years until her functional decline required placement at a long-term care facility approximately 5 years ago. Patient's family is extremely supportive, and someone tries to visit her at [facility] daily. Spiritual: Cheondoism armen Legal: Patient's sister (Fatimah Jimenez) and nephew (Austin Jimenez) met with palliative care earlier today 11/29/2016. They request that the patient's medical conditions be treated aggressively. If the patient's respiratory distress worsens, they state they would proceed with intubation and mechanical ventilation in an attempt to get the patient through this pulmonary crisis. They state they would not want the patient to remain on mechanical ventilator for a prolonged period of time. Copies of a community DNR, designation of health care surrogate form and DURABLE POWER OF WATER RESOURCE MANAGER are in the patient's chart and were faxed to HIM to be scanned into the patient's EMR. However, it appears that none of these documentations were signed by the patient and are therefore not legally binding. Per [place] statutes, in the absence of written advanced directives healthcare proxy decision making would fall to the majority of the patient's for adult siblings (she is not and never had children) . I spoke with the nurse practitioner at [facility], and it appears that one sister (Fatimah Jimenez) has been making healthcare decisions and financial decisions for the patient for an extended period of time. [place] statutes were reviewed with [facility] staff, the patient's sister (Fatimah Jimenez) and nephew (Austin Cardenas) and I have asked for contact information for the 3 remaining sisters (Lalitha Salas, Tiesha and Andrei). Ethical issues impacting care: No known ethical issues impacting care at this time. . Important Contacts Nephew: Austin LeonPoonam Jimenez, HCS: [phone] or [phone] Sister: Fatimah Jimenez, sister: [phone] or [phone] Sister: Tiesha -pending phone number Sister: Lalitha - . Sister: andrei -pending phone number . Prognosis Patient is a 81-year-old female with an extensive medical history that includes that includes bipolar disorder, anxiety/depression, arrhythmia, hypothyroidism, CAD, hyperlipidemia, CHF, h/o CVA, dementia with psychosis, DM II, HTN, and a h/ o brain tumor with debulking surgery. The patient is a long-term resident at [facility]. She is currently hospitalized with hypercapnic respiratory failure likely secondary to COPD exacerbation and pneumonia. Patient has had a slow decline over the past several years with the trajectory of her decline becoming more acute in the past 12 months. She is now primarily bedbound and dependent for all ADLs. Given the patient's advanced age, multiple comorbid conditions and overall poor performance status-her overall prognosis is likely poor. . Code Status: Alternative Code Plan * ALTERNATE CODE-intubation only * HEALTHCARE DECISION-MAKING: Patient with periods of confusion/forgetfulness. Long psych history. Patient currently able to participate in goals of care discussion. Patient tells me that in the event that she is unable to make medical decisions, she will like her sister Fatimah to continue making medical decisions on her behalf. Patient previously completed healthcare surrogate documentation but failed to sign document. Assisted incompletion of form. Patient was clearly able to verbalize her wishes regarding healthcare surrogate. Recommend share decision-making with sister Fatimah given patient' s intermittent confusion. * GOALS OF CARE: Goals of care remain aggressive at this time short of no no cardiac code. Family wishing to allow additional time for clinical improvement with the goal of discharging to long-term facility. Patient's sister (Fatimah Jimenez) and nephew (Austin Jimenez) met with palliative care on 11/29/2016 and again today. * SYMPTOM MANAGEMENT: == Dyspnea: Secondary to COPD exacerbation and pneumonia. Currently tolerating O2 via nasal cannula. BiPAP as needed. Pulmonary following. == Debility: Progressive, likely to worsen. Patient is dependent on all ADLs and is a long-term resident of facility. Goal to discharge back to long-term facility. == Anxiety: Exacerbated by shortness of breath and nicotine withdrawal. Patient with a history of smoking one pack of cigarettes daily. She was started on nicotine patch yesterday. Patient to continue her regimen of Seroquel at bedtime. == Chronic pain: On home regimen of gabapentin. * Palliative care contact information has been provided. * Palliative care will continue to follow-up with this patient and family as needed as the clinical course evolves. . Time Spent Total Floor Time (mins): 38 (Total time to include review of medical records, physical exam, bedside conversation with patient and her sister, and completion of healthcare surrogate documentation.) >50% Counseling/Coord of Care: Yes Attestation To help prompt me to consider important information that might be impacting today's encounter and assessment, information from prior notes written by myself or my colleagues may have been "brought forward" into today's note. My signature on this note, however, is an attestation that I personally performed the exam, history, and/or decision-making noted today, and, unless otherwise indicated, the interactions with patient, family, and staff as well as the review of records all occurred today. I also attest that the listed assessment and stated plan reflect my best clinical judgment today based on the combination of historical information, prior notes, and today's exam/ interactions. When time spent is documented, it refers only to time spent today by the signer, or if indicated, combined time spent today by collaborating physician/nurse practitioner. Yulia Contreras Dec 03, 2016 15:17
[2016-12-03 15:18] LABS: BANDS 6 % (0-6); BASOPHILS 1 % (0-2); PLATELET ESTIMATE SMEAR NORMAL (NORMAL); PLATELET MORPHOLOGY NORMAL (NORMAL); POLYS (SEG NEUTROPHILS) 86 % (16-70); SCAN/DIFF FINAL DIFF MANUAL; WBC DIFF SAMPLE 100
[2016-12-03 15:21] LABS: BICARBONATE 30.3 MEQ/L (21.0-32.0); POTASSIUM 4.7 MEQ/L (3.5-5.1)
[2016-12-03] MEDS ORDERED: INSULIN DETEMIR 100 UNITS/ML VIAL SQ SCH (21:00)
[2016-12-03] MEDS: DONEPEZIL HCL 5 MG TAB PO SCH (21:51)
[2016-12-03] MEDS: LATANOPROST 0.005% OPHT SOLN 2.5 ML BTL EACH EYE SCH (21:52)
[2016-12-03] MEDS: QUEtiapine FUMARATE 200 MG TAB PO SCH (23:40)
[2016-12-04 04:22] VITALS: BP 120/56; PULSE 67; RESP 22; TEMP 98.4; O2SAT 92
[2016-12-04] MEDS: LEVOTHYROXINE SODIUM 112 MCG TAB PO SCH (05:56)
[2016-12-04] MEDS: INSULIN NovoLIN REGULAR SUPPLEMENTAL SCALE SQ SCH ×2 (06:00→11:00)
[2016-12-04] MEDS ORDERED: INSULIN DETEMIR 100 UNITS/ML VIAL SQ SCH (07:00)
[2016-12-04 07:53] VITALS: O2SAT 92
[2016-12-04] MEDS: RESP: ALBUTEROL 2.5 MG/IPRATROPIUM 0.5 MG NEB (SCH) NEB (07:53)
[2016-12-04 08:00] VITALS: BP 108/59; PULSE 76; RESP 16; TEMP 97.8; O2SAT 93
[2016-12-04] MEDS: SODIUM CHLORIDE 0.9% FLUSH 10 ML FLUSH IV FLUSH SCH (09:00)
[2016-12-04] MEDS: REMOVE OLD PATCH T-DERMAL SCH (09:00)
[2016-12-04] MEDS: CEFEPIME INJ 2,000 MG in SODIUM CHLORIDE 0.9% INJ 100 ML IV SCH (09:24)
[2016-12-04] MEDS: AZITHROMYCIN INJ 500 MG in SODIUM CHLOR 0.9% 250 ML INJ 250 ML IV SCH (09:25)
[2016-12-04] MEDS: INSULIN HUMAN REGULAR 1,000 UNITS/10 ML VIAL SQ SCH (09:25)
[2016-12-04] MEDS: PRAVASTATIN SOD 40 MG TAB PO SCH (09:26)
[2016-12-04] MEDS: APIXABAN 5 MG TABLET PO SCH (09:26)
[2016-12-04] MEDS: DOCUSATE SODIUM 100 MG CAP PO SCH (09:26)
[2016-12-04] MEDS: NICOTINE 14 MG/24 HR PATCH T-DERMAL SCH (09:26)
[2016-12-04] MEDS: GABAPENTIN 300 MG CAP PO SCH (09:26)
[2016-12-04] MEDS: LITHIUM CARBONATE 300 MG CAP PO SCH (09:26)
[2016-12-04] MEDS: guaiFENesin E.R. 600 MG TAB PO SCH (09:26)
[2016-12-04] MEDS: TORSEMIDE 5 MG TAB PO SCH (09:27)
[2016-12-04] MEDS: predniSONE 20 MG TAB PO SCH (09:27)
[2016-12-04] MEDS ORDERED: LEVEMIR SQ ×2 (11:16)
[2016-12-04] MEDS ORDERED: NOVORP2 SQ (11:16)
[2016-12-04] MEDS ORDERED: PRED20 PO (11:16)
[2016-12-04] MEDS ORDERED: LEVA750T PO (11:24)
--- NOTE | 2016-12-04 11:26 | HHI.DS ---
Discharge Summary Admission Date Nov 29, 2016 at 09:19 Discharge Date: Dec 04, 2016 Admitting Diagnosis pneumonia (1) Respiratory failure ICD Code: J96.90 (2) CHF (congestive heart failure) ICD Code: I50.9 (3) Pneumonia ICD Code: J18.9 Procedures See below Brief History - From Admission This is a pleasant 81 y/o Female who was brought in from local snf for Shortness of breath, was found lethargic and Shortness of breath in AM, Oxygen saturation was 58% at local skilled nursing, Improving after antibiotics given in ER, also Bronchodilators, she has Hypertension, DM II, CAD, Hypothyroidism, Hyperlipidemia, CKD, Dementia with Psychosis, Bipolar Disorder. Seen in Emergency room the patient is discussed with Respiratory therapy specialist Miss Haque the patient is on BiPAP consulted precision agriculture specialist, also commercial specialist, I called her contact Miss Sisi Nunez but no answer to the Phones [phone] and [phone] left messages on both phones. not able to take history other than the one in chart. CBC/BMP: 12/03/16 1439 12/03/16 1439 Significant Findings Laboratory Tests Test 12/01/16 12/01/16 12/02/16 12/02/16 12:30 12:33 04:38 08:50 Blood Gas HCO3 28 mmol/L 31 mmol/L (22-26) (22-26) Blood Gas Base Excess 3.2 mmol/L 5.2 mmol/L (-2-2) (-2-2) Arterial Blood pH 7.37 7.35 (7.380-7.420) (7.380-7.420) Arterial Blood Partial 50 mmHg (38-42) 58 mmHg (38-42) Pressure CO2 Blood Gas Hemoglobin 11.1 G/DL (12.0-16.0) Blood Urea Nitrogen 37 MG/DL (7-18) Creatinine 1.71 MG/DL (0.50-1.00) Estimat Glomerular Filtration 29 ML/MIN (>89) Rate Random Glucose 151 MG/DL (74-106) Magnesium Level 2.7 MG/DL (1.5-2.5) White Blood Count 15.6 TH/MM3 (4.0-11.0) Red Blood Count 3.55 MIL/MM3 (4.00-5.30) Hemoglobin 10.5 GM/DL (11.6-15.3) Hematocrit 32.6 % (35.0-46.0) Neutrophils (%) (Auto) 86.1 % (16.0-70.0) Lymphocytes (%) (Auto) 8.8 % (9.0-44.0) Neutrophils # (Auto) 13.4 TH/MM3 (1.8-7.7) Test 12/03/16 14:39 White Blood Count 15.2 TH/MM3 (4.0-11.0) Red Blood Count 3.99 MIL/MM3 (4.00-5.30) Hemoglobin 11.1 GM/DL (11.6-15.3) Mean Corpuscular Hemoglobin 30.2 % Concent (32.0-36.0) Neutrophils (%) (Auto) 91.0 % (16.0-70.0) Lymphocytes (%) (Auto) 6.0 % (9.0-44.0) Neutrophils # (Auto) 13.8 TH/MM3 (1.8-7.7) Lymphocytes # (Auto) 0.9 TH/MM3 (1.0-4.8) Neutrophils % (Manual) 86 % (16-70) Lymphocytes % 4 % (9-44) Neutrophils # (Manual) 14.0 TH/MM3 (1.8-7.7) Blood Urea Nitrogen 46 MG/DL (7-18) Creatinine 1.54 MG/DL (0.50-1.00) Estimat Glomerular Filtration 32 ML/MIN (>89) Rate Random Glucose 210 MG/DL (74-106) PE at Discharge GENERAL: This is a well-nourished, morbidly obese well-developed patient, in no apparent distress. CARDIOVASCULAR: Regular rate and rhythm without murmurs, gallops, or rubs. RESPIRATORY: Diffuse expiratory wheezes, diminish breath sounds bilaterally. GASTROINTESTINAL: Abdomen soft, non-tender,nondistended. Normal active bowel sounds MUSCULOSKELETAL: Extremities without clubbing, cyanosis, or edema. NEURO: Awake alert, demented. Moves all ext x4 Hospital Course This is a pleasant 81 y/o Female who was brought in from local snf for Shortness of breath, was found lethargic and Shortness of breath in AM, Oxygen saturation was 58% at local skilled nursing, Improving after antibiotics given in ER, also Bronchodilators, she has Hypertension, DM II, CAD, Hypothyroidism, Hyperlipidemia, CKD, Dementia with Psychosis, Bipolar Disorder. for Respiratory Failure Hypercapnic Probable secondary to COPD exacerbation and Pneumonia continue Antibiotics, Bronchodilators, mucolytic and incentive spirometry, Oxygen to keep Oxygen saturation over 92%. Pulmonary consulted They placed patient on Cefepime continue Azithromycin. titrated Solu-Medrol to once a day and continue titration. Improving slowl We increase Levemir to 13 units twice a day to further improve blood glucose while on a steroid, WBC 15 K mostly steroid-induced Continue iv antibiotic possible switch to by mouth in a.m. on prednisone, F BG is low in the 70s, will decrease Levemir p.m. to 10 units, and monitor. Urine culture showed Morganella morganii and strep. Sensitive to Levaquin which patient will be discharged on for Bipolar disorder/Anxiety disorder/Depression and the rest of her medical problem patient continue Home medicines [id number] encounter performed with the patient on discharge day, as well as physical exam, summary of hospitalization course and postdischarge plan has been D/W the patient. D/W nurse D/W manager rn case. Discharge medications reviewed and printed and signed, post discharge follow up visit with PCP and other specialist as well as Brief hospital course and discharge summary has been placed. Pt Condition on Discharge: Stable Discharge Disposition: Discharge to SNF Discharge Time: > 30 minutes Discharge Instructions DIET: Follow Instructions for: Heart Healthy Diet, Diabetic Diet Activities you can perform: See Additionl Instruction Other Activity Instructions: per pt recs Follow up Referrals: PCP Follow-up with [facility] New Medications: Levofloxacin (Levaquin) 750 Mg Tab 750 MG PO Q48H Infection #3 Ref 0 TAB Insulin Detemir Inj (Levemir Inj) 1,000 unit/ 10 ML Vial 13 UNITS SQ AC BREAKFAST dm #30 INJECTION Insulin Detemir Inj (Levemir Inj) 1,000 unit/ 10 ML Vial 10 UNITS SQ HS dm #30 INJECTION Insulin Human Regular Inj (Novolin R Inj) 1,000 Unit/10 Ml Vial 5 UNITS SQ TIDAC dm #90 INJECTION Prednisone (Prednisone) 20 Mg Tab 20 MG PO DAILY copd #10 TAB Continued Medications: Apixaban (Eliquis) 5 Mg Tab 5 MG PO BID Blood Clot Prevention #60 Ref 0 TAB Bisacodyl Supp (Bisacodyl Supp) 10 Mg Supp 10 MG RECTAL DAILY PRN CONSTIPATION Ref 0 SUPP Cholecalciferol (Vitamin D3) 5,000 Unit Chew 5000 UNITS CHEW DAILY Nutritional Supplement #1 Ref 0 BOTTLE Donepezil (Donepezil) 10 Mg Tab 10 MG PO HS Dementia #30 Ref 0 TAB Gabapentin (Gabapentin) 300 Mg Cap 300 MG PO TID #90 Ref 0 CAP Latanoprost Opth Drops (Latanoprost Opth Drops) 0.005% Drops 1 DROP EACH EYE HS Refrigerate until opened. Glaucoma #2.5 Ref 0 ML Levothyroxine (Synthroid) 112 Mcg Tab 112 MCG PO DAILY Thyroid #30 Ref 0 TAB Pateros Carbonate (Pateros Carbonate) 300 Mg Cap 300 MG PO BID Ref 0 CAP Quetiapine (Quetiapine) 100 Mg Tab 100 MG PO BID #60 Ref 0 TAB Quetiapine (Quetiapine) 400 Mg Tab 400 MG PO HS #30 Ref 0 TAB Simvastatin (Simvastatin) 20 Mg Tab 20 MG PO DAILY Cholesterol Management #30 Ref 0 TAB Temazepam (Temazepam) 7.5 Mg Cap 7.5 MG PO HS PRN INSOMNIA #30 Ref 0 CAP Tiotropium Inh (Spiriva Handihaler) 18 Mcg Cap 18 MCG INH DAILY 1 capsule = 18 mcg COPD #30 Ref 0 CAP Torsemide (Torsemide) 10 Mg Tab 10 MG PO DAILY #30 Ref 0 TAB Fausto Matt MD Dec 04, 2016 11:25
--- NOTE | 2016-12-04 11:27 | HHI.PR ---
Subjective Remarks Patient awake alert resting in bed comfortably She agreed on getting discharged today to [facility] Objective Vitals Vital Signs Date Time Temp Pulse Resp B/P Pulse Ox O2 Delivery O2 Flow Rate FiO2 12/04/16 09:52 Nasal Cannula 3.00 40 12/04/16 08:00 97.8 76 16 108/59 93 12/04/16 07:53 92 Nasal Cannula 3.00 12/04/16 04:22 98.4 67 22 120/56 92 12/03/16 23:30 97.7 77 24 132/66 93 12/03/16 20:42 98.4 72 24 134/62 91 12/03/16 20:00 84 Nasal Cannula 3.00 12/03/16 19:03 94 Nasal Cannula 3.00 12/03/16 17:15 98.1 69 20 136/73 94 12/03/16 16:00 75 12/03/16 15:00 79 12/03/16 15:00 95 Bi-Pap 40 12/03/16 15:00 98.5 75 18 136/86 95 12/03/16 14:00 76 12/03/16 13:00 73 12/03/16 12:15 88 Nasal Cannula 3.00 12/03/16 12:00 80 I/O 12/03/16 12/03/16 12/03/16 12/04/16 12/04/16 12/04/16 07:00 15:00 23:00 07:00 15:00 23:00 Intake Total 340 ml 1380 ml 240 ml Output Total 1500 ml 2950 ml 750 ml Balance -1160 ml -1570 ml -510 ml Intake Oral 240 ml 1380 ml 240 ml IV Total 100 ml Output Urine Total 1500 ml 2950 ml 750 ml # Bowel Movements 0 0 Result Diagram: 12/03/16 1439 12/03/16 1439 Objective Remarks GENERAL: This is a well-nourished, morbidly obese well-developed patient, in no apparent distress. CARDIOVASCULAR: Regular rate and rhythm without murmurs, gallops, or rubs. RESPIRATORY: Diffuse expiratory wheezes, diminish breath sounds bilaterally. GASTROINTESTINAL: Abdomen soft, non-tender,nondistended. Normal active bowel sounds MUSCULOSKELETAL: Extremities without clubbing, cyanosis, or edema. NEURO: Awake alert, demented. Moves all ext x4 Procedures See below A/P Problem List: (1) Respiratory failure ICD Code: J96.90 Status: Acute (2) CHF (congestive heart failure) ICD Code: I50.9 Status: Acute (3) Pneumonia ICD Code: J18.9 Status: Acute Assessment and Plan This is a pleasant 81 y/o Female who was brought in from local half-way for Shortness of breath, was found lethargic and Shortness of breath in AM, Oxygen saturation was 58% at local shelter, Improving after antibiotics given in ER, also Bronchodilators, she has Hypertension, DM II, CAD, Hypothyroidism, Hyperlipidemia, CKD, Dementia with Psychosis, Bipolar Disorder. 11/30: Patient in her bedroom, in the presence of nurse Miss Garcia and her Daughter Miss Zarate she already seen by [employer] Doctor Kvng Kingston, recommended to continue Zithromax and Cefepime, continue Nasal Cannula. 12/01: Stable in her bedroom, in the presence of her Daughter Miss Zarate, discussed about Tobacco dependence, her Daughter states the patient is a Heavy Smoker, strongly recommended to stop smoking. No nausea, vomit or diarrhea continue with Expiratory wheezing. 12/02: Continue current management with Solu-Medrol iv antibiotic, increase Levemir to 13 units twice a day to further improve blood glucose while on a steroid, WBC 15 K mostly steroid-induced 12/03: Continue iv antibiotic possible switch to by mouth in a.m. on prednisone, F BG is low in the 70s, will decrease Levemir p.m. to 10 units, and monitor 12/04: Switch iv antibiotic to by mouth Levaquin, fasting blood sugar much better in the 80s, discharged to [facility] today A/P: 1. Respiratory Failure Hypercapnic Probable secondary to COPD exacerbation and Pneumonia continue Antibiotics, Bronchodilators, mucolytic and incentive spirometry, Oxygen to keep Oxygen saturation over 92%. Discussed with Respiratory Therapy specialist, switched by Doctor Vashti to Cefepime continue Azithromycin. titrated Solu-Medrol to once a day and continue titration. Improving slowly 2. Bipolar disorder/Anxiety disorder/Depression to continue Home medicines 3. CAD asked for new Echocardiogram and BNP 54, Echocardiogram performed but difficult study due to patient habitus. 4. Atrial fibrillation on Eliquis 5. Hyperlipidemia to continue Home medicines 6. Dementia to continue Home medicines 7. DM II better control on Lantus, Regular insulin and sliding scale. asked for new Hemoglobin A1C pending Insulin adjusted. 8. Hypertension Mild uncontrol continue Home medicines. 9. Hypothyroidism to continue Hormonal replacement IV. 10. UTI with Morganella morganii on urine culture as well as surgeries and possibly contamination, patient was on cefepime she will be discharged on Levaquin 2 sensitive regional extension service specialist following. DVT prophylaxis with Eliquis Problem Qualifiers (1) Pneumonia: Qualified Code: J18.9 - Pneumonia of both lungs due to infectious organism, unspecified part of lung Fausto Matt MD Dec 04, 2016 11:27
[2016-12-04 12:00] VITALS: BP 137/63; PULSE 70; RESP 16; TEMP 97.9; O2SAT 93
== END 2016-12-04 13:21 | DRG 189 ==
LOC: NEPC 06:25 → NEDA 09:19 → HCIS 12:31 → N04A 12-03 17:15
PROVIDERS: ADMIT Hospitalist; ATTEND Hospitalist
PROC: 5A09457 Assistance with Respiratory Ventilation, 24-96 Consecutive Hours, Continuous Positive Airway Pressure (ICD-10-PCS; principal; 2016-11-29)
DX: J96.92 Respiratory failure, unspecified with hypercapnia (principal); J18.9 Pneumonia, unspecified organism; I13.0 Hypertensive heart and chronic kidney disease with heart failure and stage 1 through stage 4 chronic kidney disease, or unspecified chronic kidney disease; E87.2 Acidosis; F03.90 Unspecified dementia, unspecified severity, without behavioral disturbance, psychotic disturbance, mood disturbance, and anxiety; J44.0 Chronic obstructive pulmonary disease with (acute) lower respiratory infection; I50.9 Heart failure, unspecified; E11.22 Type 2 diabetes mellitus with diabetic chronic kidney disease; J44.1 Chronic obstructive pulmonary disease with (acute) exacerbation; F17.203 Nicotine dependence unspecified, with withdrawal; D49.6 Neoplasm of unspecified behavior of brain; I48.91 Unspecified atrial fibrillation; N18.9 Chronic kidney disease, unspecified; E03.9 Hypothyroidism, unspecified; E78.5 Hyperlipidemia, unspecified; G89.29 Other chronic pain; I25.10 Atherosclerotic heart disease of native coronary artery without angina pectoris; Z79.52 Long term (current) use of systemic steroids; T38.0X5A Adverse effect of glucocorticoids and synthetic analogues, initial encounter; Z51.5 Encounter for palliative care; Z66 Do not resuscitate; Z74.01 Bed confinement status; Z86.73 Personal history of transient ischemic attack (TIA), and cerebral infarction without residual deficits; Z95.0 Presence of cardiac pacemaker
CPT/HCPCS: 36600; 51702; 71010; 76937; 80048; 80053; 80178; 81001; 82550; 82805; 82948; 83036; 83605; 83735; 83880; 84443; 84484; 85007; 85025; 85027; 85610; 85730; 87040; 87077; 87086; 87186; 93005; 93306; 94002; 94003; 94150; 94640; 94664; 96365; 96367; 96375; J0456; J0692; J1815; J1940; J2920; J7030; J7040; J7050; J7512